=== PATIENT | female | born 1965 | race Caucasian/White ===

== ENCOUNTER 2024-04-20 10:02 | Inpatient (IN) | payer OTHER, SELFPAY ==
[2024-04-20] VITALS (11 sets, daily range): BP systolic 109–160; BP diastolic 73–104; BMI 26.0; BMI 25.6
[2024-04-20 07:03] LABS: % Eosinophils 1.7 % (0-6); % Immature Granulocytes 0.3 % (0-0.5); % Monocytes 9.2 % (1.7-9.3); % Neutrophils 53.8 % (42.2-75.2); Absolute Basophils 0.1 10^3/uL (0-0.2); Absolute Eosinophils 0.1 10^3/uL (0-0.7); Absolute Lymphocytes 2.4 10^3/uL (1.2-3.4); Absolute Monocytes 0.7 10^3/uL (0.1-0.6); Absolute Neutrophils 3.8 10^3/uL (1.4-6.5); Hemoglobin 13.8 g/dL (12.0-16.0); Mean Corp Hgb Conc. 32.9 g/dL (33.0-37.0); Mean Corpuscular Hgb 29.9 pg (27.0-31.0); Mean Corpuscular Volume 90.9 fL (81.0-99.0); Mean Platelet Volume 11.9 fL (7.4-10.4); Nucleated Red Blood Cells % 0 %; Platelet Count 224 10^3/uL (130-400); Red Blood Cell Count 4.62 10^6/uL (4.20-5.40); Red Cell Dist. Width 13.5 % (11.5-14.5); White Blood Cell Count 7.1 10^3/uL (4.8-10.8)
[2024-04-20 07:06] LABS: ALT (SGPT) 34 U/L (0-35); AST (SGOT) 24 U/L (14-36); Albumin 3.7 g/dl (3.5-5.0); Alkaline Phosphatase 73 U/L (38-126); Blood Urea Nitrogen 26 mg/dl (7-17); Calcium 9.4 mg/dl (8.4-10.2); Carbon Dioxide 20 mmol/L (22-30); Chloride 110 mmol/L (98-107); Estimated Creatinine Clearance 58 ml/min; Glucose 115 mg/dl (70-99); Potassium 4.5 mmol/L (3.5-5.1); Sodium 137 mmol/L (135-145); Total Bilirubin 1.4 mg/dl (0.2-1.3); Total Protein 5.8 g/dl (6.3-8.2); eGFR > 60.00
--- NOTE | 2024-04-20 07:15 | ED.GENMED ---
History of Present Illness
General
Chief Complaint: Breathing Problem
Source: patient
Exam Limitations: none
Time Seen by Provider: 04/20/24 07:02
History of Present Illness
History of Present Illness:
See MDM
Past History
Past History
ED Past Medical History: HTN and Other (Restless leg syndrome)
ED Past Surgical History: None
Social History
Tobacco: Smoker
Alcohol: Daily
Living: with family
Employment: Employed
Family History
Family History: Other (Noncontributory)
Phy Exam
Physical Exam
Physical Exam:
See MDM
Scores
Heart Failure Risk
Heart Failure Risk Score: Yes
History of Stroke or TIA: No
History of intubation for respiratory distress: No
Heart rate on ED arrival >/= 110: No
SaO2 <90% on arrival on room air: No
HR >/=110 during 3min walk test (or too ill to perform test): Yes
ECG has acute ischemic changes: No
Urea >/=12mmol/L (BUN 33.6mg/dL): No
Serum CO2>/=35mmol/L: No
Troponin I or T elevated to ID Level (0.4mg/dL): No
NT-proBNP >/=5,000ng/L (5,000pg/ml): Yes
HF Risk Score: 3
Admission Status: HIGH RISK 15.9% Consider SNF treatment or admission to hospital
Course
Orders/Labs/Results
Orders:
Orders
04/20/24
Electrocardiogram (*1) Stat
Reason for Study: Chest Pain
Comment: DONE
04/20/24 06:41
Complete Blood Count/With Diff Urgent
Comprehensive Metabolic Panel Urgent
NT-proBNP Urgent
Troponin I Urgent
04/20/24 06:43
Electrocardiogram (*1) Urgent
Reason for Study: Chest Pain
EKG- Treatment ONCE
04/20/24 06:54
Chest [CR Chest - 2 Views ] Urgent
Comment:
Reason For Exam: shortness of breath
04/20/24 07:21
COVID-19 Antigen Urgent
Source: Nasal Swab
Influenza A+B Rapid Molecular Urgent
RHEA Source: Nasal Swab
Specimen Description:
04/20/24 08:33
Furosemide [Lasix] 40 mg IV NOW STA
Abnormal Lab Results
04/20/24
06:41
MCHC 32.9 L g/dL
(33.0-37.0)
MPV 11.9 H fL
(7.4-10.4)
Absolute Monos (auto) 0.7 H 10^3/uL
(0.1-0.6)
Chloride 110 H mmol/L
(98-107)
Carbon Dioxide 20 L mmol/L
(22-30)
BUN 26 H mg/dl
(7-17)
Glucose 115 H mg/dl
(70-99)
Total Bilirubin 1.4 H mg/dl
(0.2-1.3)
Total Protein 5.8 L g/dl
(6.3-8.2)
04/20/24 06:41
04/20/24 06:41
Vital Signs
Initial and Last Documented VS:
Initial Vital Signs
Temp Pulse Resp BP Pulse Ox
99.1 F 100 28 160/104 96
04/20/24 06:04 04/20/24 06:04 04/20/24 06:04 04/20/24 06:04 04/20/24 06:04
Last Documented Vital Signs
Temp Pulse Resp BP Pulse Ox
99.1 F 86 18 148/98 98
04/20/24 06:04 04/20/24 08:00 04/20/24 08:00 04/20/24 08:00 04/20/24 08:00
MDM/Problems Addressed
Differential Diagnosis Includes:
HPI and MDM Narrative:
58-year-old female presenting with several days of worsening shortness of breath. Patient states she is short of breath with minimal exertion. She denies any active chest pain or leg swelling. Patient does acknowledge that she has been without
her medications for several months. When questioned why, she states she no longer has insurance.
Patient does give a concerning story with exertional dyspnea. EKG was done showing no evidence of acute STEMI. Regardless, will obtain chest x-ray and basic blood work including BNP and troponin.
Physical exam
General: Weak and fatigued
HEENT: protecting airway
Neck: appears supple
CV: No evidence of cyanosis. Regular rate and rhythm
Resp: No accessory muscle use. Lungs clear
Abd: Non-distended
Extremities: No deformities. No leg edema
Neuro: alert
Psych: Normal affect
Skin: Intact
Problems Addressed including Acute and Chronic Conditions affecting care:
1. Shortness of breath with exertion
Acuity: acute
Prognosis: stable
Details: Given her history, will obtain chest x-ray, troponin and BNP
Updates
Chest x-ray shows cardiomegaly. BNP greater than 9000. Will give dose of IV Lasix and admit
Differential Diagnosis (but not limited to): Pneumonia, viral syndrome, acute coronary syndrome
Testing considered: D-dimer
Drug therapy (if applicable): OTC meds, please see d/c instruction regarding Rx drugs
Amount and/or Complexity of Data Reviewed
Clinical info obtained from: Patient
External data reviewed: N/A
Labs I independently reviewed (but not limited to): Elevated BNP
Radiology: X-ray independently reviewed: Chest x-ray shows cardiomegaly
Pulse Ox: not hypoxic
EKG independently reviewed: Sinus rhythm, normal axis, no STEMI
Customer Support Agent: sinus rhythm
Critical Care: N/A
Risk of Complication:
Social Determinants of health: Good social support
Discussed with other providers: Hospitalist
Escalation of Care includes Admit/Obs: Given the cardiomegaly with exertional dyspnea, will start Lasix and admit
Occasional wrong word or 'sound a like' substitutions may have occurred due to the inherent limitations of voice recognition software. Read the chart carefully and recognize, using context, where substitutions have occurred.
*Critical Care Note
Total Time (30-74mins, 75-104mins- exclusive of procedures): Not Applicable
ED Attending Note
-
Portions of this chart may have been created with voice recognition software.� Occasional wrong word or��sound alike� substitutions may have occurred due to the inherent limitations of voice recognition software.
Discharge Plan
Departure
Patient Disposition: Admit
Date of Disposition: 04/20/24
Time of Disposition: 08:37
Admit to: Med/Surg
Presentation/result/management discussed w/ accepting MD/DO: Hospitalist
Discharge Problem:
Cardiomegaly, WEBBER (dyspnea on exertion)
Prescriptions:
No Action
ferrous sulfate [FeroSul] 325 MG tablet
325 mg PO DAILY
carvedilol 3.125 MG tablet
3.125 mg PO BID Qty: 60 0RF
lisinopril 5 MG tablet
5 mg PO DAILY Qty: 30 0RF
furosemide 40 MG tablet
40 mg PO DAILY Qty: 30 0RF
aspirin 81 MG tablet,delayed release (DR/EC)
81 mg PO DAILY
Referrals:
NONE,* [Family Provider] -
Interventions
Interventions:
*Risk Screen - Suicide Last Done: 04/20/24 06:04
*General Assessment Last Done: 04/20/24 06:44
*Neglect/Abuse Screening Last Done: 04/20/24 06:04
ED- Cardiac Assessment Last Done: 04/20/24 06:44
ED- Pulmonary Assessment Last Done: 04/20/24 06:44
Discharge Date and Time
Print Language: MALTESE
[2024-04-20 07:30] LABS: NT-proBNP 9510 pg/ml; Troponin I 0.028 ng/ml
[2024-04-20 08:04] LABS: COVID-19 Antigen Negative (Negative)
[2024-04-20] MEDS: LASIX 40 MG IV ×2 (08:51→16:32)
--- NOTE | 2024-04-20 09:07 | HPS.HSE ---
Family Physician
-
Family Physician: * NONE
Chief Complaint
-
WEBBER
History of Present Illness
58 y/o F, hx of tobacco abuse, daily ETOH intake, prior hx of cardiomyopathy on GMDT including diuretics presents to ER for 1.5 week history of WEBBER. She reports onset was about 10 days and have gradually progressed. She reports SOB with minimal
activity. Also SOB when laying flat, but improved with sitting up. Denies LE edema but does note abdominal distention. Denies CP. No fever/chills. No Nausea/vomiting. Reports running out of insurance since Summer and recently finished her BP meds
and last week ran out of Lasix. Does not follow recommended diets nor does she check daily weights. Has not seen PCP In nearly 1 year.
in ER, found to have evidence of acute CHF and admitted for treatment. Cards consulted.
Medical History
Past Medical History
Past Medical History: Reports Other ( tobacco abuse, daily ETOH intake, prior hx of cardiomyopathy on GMDT, essential HTN)
Past Surgical History: Reports None
Social History
Tobacco: Smoker (1 pack over 3 days)
Alcohol: Daily
Personal:
Living: With Family
Employment: Not Employed
Family History
Family History: Not pertinent
Allergies / Home Medications
Allergies reflects when Allergies were last updated in [employer].
Home Medications with original date entered in [employer]
Allergy/Medication List:
N/A - not active list (not on meds currently due to insurance issues) - ED pharmacy will document
Review of Systems
-
A 12 point ROS was completed and negative except as noted: Yes
Physical Exam
Vital Signs
Vital Signs
Temp Pulse Resp BP Pulse Ox
99.1 F 86 18 148/98 98
04/20/24 06:04 04/20/24 08:00 04/20/24 08:00 04/20/24 08:00 04/20/24 08:00
Physical Exam
General: Respiratory Distress (mild)
HEENT: NormoCephalic and Anicteric
Respiratory: Crackles
Cardiac: S1/S2 and Regular Rhythm
GI: Distended
Neuro: AO x 3
Hematologic/Lymphatic: No Lymphadenopathy
Psych: Calm
Laboratory Results
-
04/20/24 06:41
04/20/24 06:41
Laboratory Results
Total Bilirubin 1.4 mg/dl (0.2-1.3) H 04/20/24 06:41
AST 24 U/L (14-36) 04/20/24 06:41
ALT 34 U/L (0-35) 04/20/24 06:41
Alkaline Phosphatase 73 U/L (38-126) 04/20/24 06:41
Troponin I 0.028 ng/ml 04/20/24 06:41
Data Reviewed
-
Lab Data: Labs Reviewed by me
Impression/Plan
-
Assessment:
Acute CHF - unknown type
- CXR with cardiomegaly
- evidence of volume overload (Abd distention, crackles), BNP>9000
- continue IV Lasix, 40mg BID - requires intensive monitoring of I/Os, weights, lytes
- prior GDMT included Coreg and Lisinopril - but has not filled in months due to insurance lapse
- update Echo
- CHF Education
- Cardiology consult
Essential HTN
- resume Coreg and Lisinopril - CM to assist with pricing/discount options
active tobacco abuse
- reports 1 pack every 3 days
- nicotine patch
- encouraged cessation
daily ETOH intake
- reports 2-3 drinks daily
- MSAS protocol
- encouraged cessation
DVT ppx: Lovenox
Code: Full
--- NOTE | 2024-04-20 11:24 | CON.CAR ---
Addendum entered and electronically signed by Carlos Alberto Bey DO 04/20/24 20:45:
I saw and examined the patient.
The Computer Programmer's note was reviewed and I agree with the note.
Comment:
Plan:
Cont IV lasix diuresis (she had been on lasix 40 mg daily in the past)
Check echo to reeval EF given hx of recovered CM
Case management to review and help with insurance issues
Discussed tobacco and alcohol cessation.
Compliance has been discussed
Original Note:
Consultation
Consultation Request
Date/Time Consultation Performed: 04/20/24
Requesting Provider: Dr. Landry
Performing Provider: Nida Palacio PA-C for Dr. CATHLEEN Ennis
Reason for Consultation: CHF
Medical History
-
Chief Complaint: SOB
History of Present Illness:
Patient is a 58-year-old female with past medical history of suspected ETOH nonischemic cardiomyopathy with EF as low as 10 to 15% in 2014, normalized by echo 08/2019 who presents to [facility] due to shortness of breath worsening since last
week as well as significant abdominal bloating. On further questioning she reports she failed to sign up for health insurance on time, and therefore lost her insurance. She reports she ran out of her medicines including Lasix. Only medicine she
is still taking is lisinopril. proBNP on arrival 9510. Denies chest pain, lower extremity edema, palpitations. She continues to smoke cigarettes. She drinks 2-3 alcoholic beverages daily. Cardiology consulted for evaluation.
PMH:
History of suspected ETOH NICM
Chronic HFimpEF
HTN
Ongoing tobacco use
Daily ETOH use
History of noncompliance
Past Medical History
Past Medical History: Other (in HPI)
Social History
Tobacco: Smoker
Alcohol: Daily
Personal:
Living: With Family
Employment: Not Employed
Family History
Family History: CAD
Allergies / Home Medications
Allergy/AdvReac Type Severity Reaction Status Date / Time
latex Allergy Intermediate Itching Verified 04/20/24 06:09
Sulfa (Sulfonamide Allergy Intermediate Itching Verified 04/20/24 06:09
Antibiotics)
�Medication �Instructions �Recorded �Confirmed �Type
Restless Leg Pm Tablets 3 - 4 tab PO HSPRN PRN rts 04/20/24 04/20/24 History
lisinopril 20 mg tablet 20 mg PO DAILY 04/20/24 04/20/24 History
Review of Systems
-
History Source: Patient and Family
All other systems: Negative unless noted
Physical Exam
Vital Signs
Temp Pulse Resp BP Pulse Ox
97.3 F 81 18 127/90 94
04/20/24 11:23 04/20/24 11:23 04/20/24 11:23 04/20/24 11:23 04/20/24 11:23
Lab Results
04/20/24 06:41
04/20/24 06:41
Troponin I 0.028 ng/ml 04/20/24 06:41
Cno-I-Dlpubijrgpz Pept 9510 pg/ml 04/20/24 06:41
Physical Exam
General: No Apparent Distress and Comfortable
HEENT: Normocephalic, Anicteric and Moist Mucous Membranes
Respiratory: Clear and Non Labored Respirations
Cardiac: S1/S2 and Regular Rhythm
GI: Soft, Non Tender, Normal Bowel Sounds and Distended (mild)
Musculoskeletal: No Clubbing, No Cyanosis and No Edema
Skin: Warm and Dry
Neuro: AO x 3
Impression / Plan
-
Primary Experimental Outboard Motors Mechanic: Dr. Aguilar, last seen in 2021
Assessment:
Presentation with SOB, abd bloating
Acute on chronic HFpEF
History of suspected ETOH NICM, recovered
HTN
Ongoing tobacco use
Daily ETOH use
History of noncompliance
Echo 11/29/2014: EF 10 to 15%, global hypokinesis, biatrial dilatation, moderate MR, mild AR, moderate TR with PAP 35 to 40 mmHg
ECHO 10/05/15: EF 40%, mild global hypokinesis, mild cLVH, mild AR
ECHO 09/24/2019: EF 50 to 55%, MAC, mild MR, mild TR, PAP 50 mmHg
ECHO 11/22/21: EF 57%, mild concentric LVH, MAC, mild MR, normal right heart
Plan:
-Patient presents with acute CHF after running out of her medications including lasix after losing her health insurance.
-proBNP 9510
-continue IV lasix. was on 40mg daily in past. Cr stable
-last echo from 2021 with results as above. she has history of NICM so will repeat echo for reassessment
-resume GDMT as able. by last office note 02/2021, patient was on OP medication regimen of coreg 12.5mg BID, lisinopril 20mg daily, spironolactone 25mg daily.
-CHF education
-tobacco and ETOH cessation
-CM consult
-d/w nursing. d/w patient and at bedside
Data Reviewed
-
EKG: Tracing Personally Visualized and interpreted
Radiology: Report Reviewed by me
Medical Tests (Nuc Med, Echo etc): Report Reviewed by me
Labs: Labs Reviewed by me
Old Records: Reviewed
--- NOTE | 2024-04-20 11:30 | PTCARENOTE ---
no delay received. aaox3. nsr. vss. cards pa at bedside. oriented to room. call oliva in reach. will monitor.
[2024-04-20] MEDS: ZESTRIL 5 MG PO (11:40)
[2024-04-20] MEDS: COREG 6.25 MG PO ×2 (11:40→20:37)
[2024-04-20] MEDS: THIAMINE INJECTION 200 MG IV ×2 (11:41→20:37)
[2024-04-20] MEDS: NICODERM TRANSDERMAL 14 MG TRANSDERM (11:41)
[2024-04-20] MEDS: LOVENOX 40 MG SC (17:42)
--- NOTE | 2024-04-20 23:43 | PTCARENOTE ---
Pt with 39 beat run VTACH. Pt sleeping, upon entering pt room, woke pt up, HR back into the 60's in NSR on the monitor with occ. PVC's. Vital signs obtained, stable at this time. Pt denies any complaints. House ROAD FREIGHT FIRER notified. Labs ordered for am. Will
continue to monitor.
[2024-04-21] VITALS (7 sets, daily range): BP systolic 101–126; BP diastolic 62–93; BMI 24.3
[2024-04-21 07:23] LABS: Hematocrit 45.6 % (37.0-47.0); Hemoglobin 15.3 g/dL (12.0-16.0); Mean Corp Hgb Conc. 33.6 g/dL (33.0-37.0); Mean Corpuscular Hgb 29.5 pg (27.0-31.0); Mean Corpuscular Volume 87.9 fL (81.0-99.0); Mean Platelet Volume 12.2 fL (7.4-10.4); Platelet Count 254 10^3/uL (130-400); Red Blood Cell Count 5.19 10^6/uL (4.20-5.40); Red Cell Dist. Width 13.3 % (11.5-14.5); White Blood Cell Count 6.7 10^3/uL (4.8-10.8)
--- NOTE | 2024-04-21 09:41 | W.PN.CARDCBS ---
Addendum entered and electronically signed by Carlos Alberto Bey DO 04/21/24 10:14:
I saw and examined the patient.
The Transformation Architect's note was reviewed and I agree with the note.
Comment:
Plan:
Cont IV diuresis
Reviewed echo findings with pt. Discussed right and left heart cath and she is agreable.
Increase Coreg and cont ACEI, eventual consider aldactone.
Monitor cr, daily wts and Is and Os.
Cont monitor with NSVT
Check Mg and potassium
Discussed compliance and tobacco and alcohol cessation.
Original Note:
Today's Communication / Plan
-
continue diuresis
plan for R and LHC in AM
increase coreg
await K/mag and replete as needed
Impression / Plan
-
Primary Equalizer Operator: Dr. Aguilar, last seen in 2021
Assessment:
Presentation with SOB, abd bloating
Acute on chronic HFpEF
History of suspected ETOH NICM, recovered
HTN
Ongoing tobacco use
Daily ETOH use
History of noncompliance
Echo 11/29/2014: EF 10 to 15%, global hypokinesis, biatrial dilatation, moderate MR, mild AR, moderate TR with PAP 35 to 40 mmHg
ECHO 10/05/15: EF 40%, mild global hypokinesis, mild cLVH, mild AR
ECHO 09/24/2019: EF 50 to 55%, MAC, mild MR, mild TR, PAP 50 mmHg
ECHO 11/22/21: EF 57%, mild concentric LVH, MAC, mild MR, normal right heart
ECHO 04/20/24: EF 20 to 25%, mild concentric LVH, global hypokinesis, stage II diastolic dysfunction, dilated RA, mild to moderate MR, mild AR, moderate TR, mild NH
Plan:
-Patient presents with acute CHF after running out of her medications including lasix after losing her health insurance.
-diuresing well. weight down if accurate. labs pending this AM. was on 40mg po daily in past.
-by echo she again has reduced EF 20-25%.
-Also on review of telemetry, has one episode of NSVT, PVCs, and what appears to be intermittent bundle overnight. patient asymptomatic. check K/mag and replete as needed. will increase coreg dose
-will plan for R and LHC in AM. NPO after midnight. procedure discussed with patient and at bedside today
-resume GDMT as able. by last office note 02/2021, patient was on OP medication regimen of coreg 12.5mg BID, lisinopril 20mg daily, spironolactone 25mg daily.
-CHF education
-tobacco and ETOH cessation
-CM consult
-d/w nursing.
Progress Note - Equalizer Operator
Subjective
Date of Service: April 21, 2024
reports breathing improving. no CP, palpitations
Objective
Labs:
04/21/24 06:40
Labs
Hgb 15.3 g/dL (12.0-16.0) 04/21/24 06:40
Hct 45.6 % (37.0-47.0) 04/21/24 06:40
Plt Count 254 10^3/uL (130-400) 04/21/24 06:40
Sodium 137 mmol/L (135-145) 04/20/24 06:41
Potassium 4.5 mmol/L (3.5-5.1) 04/20/24 06:41
BUN 26 mg/dl (7-17) H 04/20/24 06:41
Creatinine 1.0 mg/dL (0.6-1.0) 04/20/24 06:41
Glucose 115 mg/dl (70-99) H 04/20/24 06:41
Troponins
04/20/24
06:41
Troponin I 0.028
Vital Signs and I&O:
Vital Signs
Temp Pulse Resp BP Pulse Ox
98.2 F 64 16 107/77 98
04/21/24 07:15 04/21/24 07:15 04/21/24 07:15 04/21/24 07:15 04/21/24 07:15
Vital Signs
Temp Pulse Resp BP Pulse Ox
98.2 F 64 16 107/77 98
04/21/24 07:15 04/21/24 07:15 04/21/24 07:15 04/21/24 07:15 04/21/24 07:15
Intake & Output
04/19/24 04/20/24 04/21/24 04/22/24
07:59 07:59 07:59 07:59
Intake Total 720 / 720
Balance 720 / 720
Physical Exam
Physical Exam
GEN: No distress, awake, alert, oriented x3
HEENT: supple, anicteric, mmm, eomi
LUNGS: Few crackles B/L
CV: Reg, S1/S2, no murmur
ABD: soft, BS+, NT/ND
EXT: No cyanosis, clubbing, edema
NEURO: Gross non-focal
SKIN: Warm, pink, dry. No rash
[2024-04-21] MEDS: FOLVITE 1 MG PO (09:45)
[2024-04-21] MEDS: COREG PO ×2 (09:45→09:53)
[2024-04-21] MEDS: ZESTRIL 5 MG PO (09:45)
[2024-04-21] MEDS: LASIX 40 MG IV ×2 (09:45→17:15)
[2024-04-21] MEDS: NICODERM TRANSDERMAL 14 MG TRANSDERM (09:46)
[2024-04-21] MEDS: THIAMINE INJECTION 200 MG IV ×2 (09:46→20:17)
[2024-04-21] MEDS: COREG 12.5 MG PO ×2 (09:54→20:16)
[2024-04-21 10:09] LABS: ALT (SGPT) 29 U/L (0-35); AST (SGOT) 21 U/L (14-36); Albumin 4.1 g/dl (3.5-5.0); Alkaline Phosphatase 78 U/L (38-126); Blood Urea Nitrogen 29 mg/dl (7-17); Calcium 9.8 mg/dl (8.4-10.2); Carbon Dioxide 19 mmol/L (22-30); Chloride 102 mmol/L (98-107); Estimated Creatinine Clearance 58 ml/min; Glucose 121 mg/dl (70-99); Magnesium 1.8 mg/dl (1.6-2.3); Phosphorus 4.6 mg/dl (2.5-4.5); Potassium 4.2 mmol/L (3.5-5.1); Sodium 136 mmol/L (135-145); Total Bilirubin 1.4 mg/dl (0.2-1.3); Total Protein 6.3 g/dl (6.3-8.2); eGFR > 60.00
--- NOTE | 2024-04-21 10:34 | CM ---
CM reviewed medical records. Plan for R and L heart cath tomorrow 04/22.
--- NOTE | 2024-04-21 12:22 | W.PN.HOSP.TC ---
Today's Communication/Plan
-
NPO p MN for R+L heart cath tomorrow - discussed with Cardiology
Assessment / Plan
Assessment / Plan
Assessment:
Acute HFrEF
- CXR with cardiomegaly
- evidence of volume overload (Abd distention, crackles), BNP>9000
- continue IV Lasix, 40mg BID - requires intensive monitoring of I/Os, weights, lytes
- prior GDMT included Coreg and Lisinopril - but has not filled in months due to insurance lapse
- echo: ECHO 04/20/24: EF 20 to 25%, mild concentric LVH, global hypokinesis, stage II diastolic dysfunction, dilated RA, mild to moderate MR, mild AR, moderate TR, mild OH
- CHF Education
- Cardiology following
- for Right and Left heart cath tomorrow
Essential HTN
- continue Coreg and Lisinopril - CM to assist with pricing/discount options
NSVT
- monitor tele; monitor lytes
active tobacco abuse
- reports 1 pack every 3 days
- nicotine patch
- encouraged cessation
daily ETOH intake
- reports 2-3 drinks daily
- MSAS protocol
- encouraged cessation
DVT ppx: Lovenox
Code: Full
Anticipated Discharge: > 48 hours
Subjective/Interval History
-
Date of Service: April 21, 2024
breathing improved
no cp or palpitations
Objective Data
-
Labs:
Laboratory Results
04/21/24
06:40
WBC 6.7
Hgb 15.3
Hct 45.6
Plt Count 254
Sodium 136
Potassium 4.2
Chloride 102
Carbon Dioxide 19 L
BUN 29 H
Creatinine 1.0
Glucose 121 H
Calcium 9.8
Total Bilirubin 1.4 H
AST 21
ALT 29
Alkaline Phosphatase 78
Vital Signs:
Vital Signs
Temp Pulse Resp BP Pulse Ox
97.7 F 68 17 109/70 96
04/21/24 11:00 04/21/24 11:00 04/21/24 11:00 04/21/24 11:00 04/21/24 11:00
I&O
04/20/24 04/21/24 04/22/24
06:59 06:59 06:59
Intake Total 720 / 720 360 / 360
Balance 720 / 720 360 / 360
Physical Exam
-
General: No Apparent Distress
HEENT: Normocephalic and Atraumatic
Respiratory: Negative Wheezes
Cardiac: Regular Rhythm and S1/S2
GI: Soft and Nontender
Genito-urinary: No Costovertebral Tender
Neuro: AO x 3
Hematologic / Lymphatic: No Lymphadenopathy
Psych: Calm
Data Reviewed
-
Total Time Spent with Patient (in minutes): 52
Labs: Labs Reviewed by me
[2024-04-21] MEDS: MAGNESIUM OXIDE 500 MG PO (13:45)
--- NOTE | 2024-04-21 14:45 | CM ---
CM reviewed medical records. CM met with patient in room. Patient confirmed demographics. Patient is currently living in the garage of her property with her boyfriend. Patient's home is being remodeled, but due to boyfriend's stroke the patient was
unable to complete the repairs on the home. THe home has electricity and heat currently on in the home. Patient stated that the garage does have a wood stove.
Patient stated her only source of income is her boyfriend's social security check. Patient stated that she cannot work due to boyfriend's illness and her having to care for him.
Patient's Medicaid had lapsed. CM advised patient to follow up with [facility]. Patient stated that Peggy has been in contact with patient.
CM will provide written resources for patient including goodrX, needy meds, and [facility].
[2024-04-21] MEDS: LOVENOX 40 MG SC (17:15)
[2024-04-22] VITALS (16 sets, daily range): BP systolic 97–132; BP diastolic 62–98; BMI 24.1
[2024-04-22 07:25] LABS: Hematocrit 50.6 % (37.0-47.0); Hemoglobin 16.7 g/dL (12.0-16.0); Mean Corpuscular Hgb 29.5 pg (27.0-31.0); Mean Corpuscular Volume 89.4 fL (81.0-99.0); Platelet Count 286 10^3/uL (130-400); Red Blood Cell Count 5.66 10^6/uL (4.20-5.40); Red Cell Dist. Width 13.4 % (11.5-14.5); White Blood Cell Count 7.8 10^3/uL (4.8-10.8)
[2024-04-22] MEDS: LOW STRENGTH ASPIRIN 324 MG PO (08:28)
[2024-04-22 08:31] LABS: ALT (SGPT) 28 U/L (0-35); AST (SGOT) 19 U/L (14-36); Albumin 4.2 g/dl (3.5-5.0); Alkaline Phosphatase 80 U/L (38-126); Blood Urea Nitrogen 38 mg/dl (7-17); Calcium 10.3 mg/dl (8.4-10.2); Carbon Dioxide 22 mmol/L (22-30); Chloride 101 mmol/L (98-107); Estimated Creatinine Clearance 48 ml/min; Glucose 117 mg/dl (70-99); Potassium 4.7 mmol/L (3.5-5.1); Sodium 134 mmol/L (135-145); Total Protein 6.8 g/dl (6.3-8.2)
[2024-04-22 10:18] LABS: ACT-LR - POC 202 Seconds (116-155)
[2024-04-22 10:30] LABS: ACT-LR - POC 208 Seconds (116-155)
--- NOTE | 2024-04-22 10:42 | ITS.CL.CATH ---
Bridge Crane Operator - Catheterization
Cardiac Catheterization
Procedure Report:
RIGHT AND LEFT HEART STUDY
Date of Procedure: April 22, 2024
Referring: Dr. Carlos Alberto Bey
PROCEDURES:
1. Right heart catheterization
2. Left heart catheterization with coronary and single-plane left ventriculography
INDICATION: This is a 58-year-old female with a prior history of heavy alcohol abuse and nonischemic cardiomyopathy by coronary angiography 08/2014.
ACCESS: Right radial artery, 6 [place] sheath in right common femoral vein, 6 [place] sheath
HEMODYNAMICS : mmHg
RA (m) : 12
RV (s/d) : 41/9
PA (s/d, m) : 40/24, 30
PCWP (m) : 20
AO (s/d, m) : 114/81, 94
LV (s/d) : 109/10
LVEDP : 18
Estimated Smith Cardiac Output: 2.3 L / min and Cardiac Index: 1.3 L/ min / m-2
Systemic vascular resistance: 35.7 Wood units or 2,852 [id number](-5)
Pulmonary vascular resistance: 4.3 Wood units or 348 [id number]-[id number](-5)
CORONARY FINDINGS :
Dominance: Right
LEFT MAIN: Normal
LEFT ANTERIOR DESCENDING: The LAD is moderately to heavily calcified in its proximal midportion. The LAD runs in the anterior interventricular groove and has only minor irregularities over its course but no focal obstructive stenosis. The mid LAD
beyond the second diagonal branch has a 40% stenosis
CIRCUMFLEX: The circumflex is a medium caliber nondominant vessel with moderate calcification in the mid vessel. The circumflex supplies a single large obtuse marginal branch. Minor irregularities are present.
RIGHT CORONARY ARTERY: The right coronary artery is a moderate caliber dominant vessel that has diffuse luminal irregularities over its course but no focal obstructive stenosis. The PDA is widely patent. The posterolateral branch is widely patent
VENTRICULOGRAPHY: Left ventriculography is performed in an OCAMPO projection. The digital single-plane left ventricular ejection fraction is visually estimated at 10-15%. The ventricle is dilated and globally hypokinetic
RADIATION SUMMARY: Fluoro Time (min): 6.5, Dose (mGy): 230, DAP (Gy.cm2) : 20.7
CONCLUSIONS
1. Severe LV dysfunction with a visually estimated ejection fraction of 10-15%
2. Mildly elevated right and left ventricular filling pressures with severely reduced cardiac output and cardiac index
3. Moderate noncritical coronary disease
RECOMMENDATIONS
1. Continue medical management for dilated cardiomyopathy. I would continue pushing guideline directed medical therapy for LV dysfunction. Blood pressures are good but creatinine slowly rising. We may have to consider inotropic therapy with
milrinone if the creatinine continues to rise while titrating medical therapy. For now, she is maintaining blood pressures and diuresing well.
Copy to: Dr. Damon Aguilar
--- NOTE | 2024-04-22 13:30 | W.PN.HOSP.TC ---
Today's Communication/Plan
-
IVU post-cath
continue diuretics
follow Cards recs
Assessment / Plan
Assessment / Plan
Assessment:
Acute HFrEF
- CXR with cardiomegaly
- evidence of volume overload (Abd distention, crackles), BNP>9000
- continue IV Lasix, 40mg BID - requires intensive monitoring of I/Os, weights, lytes
- prior GDMT included Coreg and Lisinopril - but has not filled in months due to insurance lapse
- echo: ECHO 04/20/24: EF 20 to 25%, mild concentric LVH, global hypokinesis, stage II diastolic dysfunction, dilated RA, mild to moderate MR, mild AR, moderate TR, mild UT
- CHF Education
- Cardiology following
- s/p R and L HC with clean coronaries and CI 1.2 per cardiac GARAGE DOOR TECHNICIAN - await formal report
Essential HTN
- continue Coreg and Lisinopril - CM to assist with pricing/discount options
NSVT
- monitor tele; monitor lytes
active tobacco abuse
- reports 1 pack every 3 days
- nicotine patch
- encouraged cessation
daily ETOH intake
- reports 2-3 drinks daily
- MSAS protocol
- encouraged cessation
DVT ppx: Lovenox
Code: Full
Anticipated Discharge: 24 - 48 hours
Subjective/Interval History
-
Date of Service: April 22, 2024
s/p cath
resting comfortably
Objective Data
-
Labs:
Laboratory Results
04/22/24
06:45
WBC 7.8
Hgb 16.7 H
Hct 50.6 H
Plt Count 286
Sodium 134 L
Potassium 4.7
Chloride 101
Carbon Dioxide 22
BUN 38 H
Creatinine 1.2 H
Glucose 117 H
Calcium 10.3 H
Total Bilirubin 1.0
AST 19
ALT 28
Alkaline Phosphatase 80
Vital Signs:
Vital Signs
Temp Pulse Resp BP Pulse Ox
97.3 F 63 10 132/96 94
04/22/24 07:44 04/22/24 12:00 04/22/24 12:38 04/22/24 11:53 04/22/24 12:00
I&O
04/21/24 04/22/24 04/23/24
06:59 06:59 06:59
Intake Total 720 / 720 600 / 600
Balance 720 / 720 600 / 600
Physical Exam
-
General: No Apparent Distress
HEENT: Normocephalic and Atraumatic
Respiratory: Wheezes
Cardiac: Regular Rhythm and S1/S2
GI: Soft and Nontender
Genito-urinary: No Costovertebral Tender
Musculoskeletal: No Edema
Neuro: AO x 3
Hematologic / Lymphatic: No Lymphadenopathy
Psych: Calm
Data Reviewed
-
Total Time Spent with Patient (in minutes): 51
Labs: Labs Reviewed by me
[2024-04-22] MEDS: THIAMINE INJECTION IV (14:06)
[2024-04-22] MEDS: COREG PO (14:06)
[2024-04-22] MEDS: FOLVITE PO (14:06)
[2024-04-22] MEDS: NICODERM TRANSDERMAL 14 MG TRANSDERM (14:32)
[2024-04-22] MEDS: ZESTRIL 5 MG PO (14:33)
[2024-04-22] MEDS: LASIX IV (14:36)
--- NOTE | 2024-04-22 16:33 | PTCARENOTE ---
Assumed care of pt upon tsf from CCL post CC. Pt received awake and alert, Ox3.. Right radial and femoral dsg's remain CDI. Movement restrictions reviewed with pt. Pt oriented to room and surroundings, denies any pain or discomfort at this time.
[2024-04-22] MEDS: LOVENOX 40 MG SC (17:21)
[2024-04-22] MEDS: THIAMINE INJECTION 200 MG IV (20:27)
[2024-04-22] MEDS: COREG 12.5 MG PO (20:30)
--- NOTE | 2024-04-22 21:20 | PTCARENOTE ---
Patient received at change of shift resting in the bed. Right radial puncture with gauze and tegaderm C/D/I, bilateral radial pulses palpable. Right groin puncture site C/D/I, bilateral pedal pulses palpable. Patient denies chest pain and offers no
complaints at this time. MSAS zero presently. Normal sinus rhythm on nuclear monitoring technician with occasional PVCs. Oxygen saturation 95-97% on room air. The patient is drowsy but awakens to voice and tactile stimulation, AOx3. Plan of care discussed with
patient. Call oliva within reach. Care ongoing.
[2024-04-23] VITALS (7 sets, daily range): BP systolic 85–107; BP diastolic 52–80; BMI 24.3
[2024-04-23 03:14] LABS: Hematocrit 46.7 % (37.0-47.0); Hemoglobin 15.8 g/dL (12.0-16.0); Mean Corp Hgb Conc. 33.8 g/dL (33.0-37.0); Mean Corpuscular Hgb 29.5 pg (27.0-31.0); Mean Corpuscular Volume 87.3 fL (81.0-99.0); Mean Platelet Volume 11.2 fL (7.4-10.4); Platelet Count 258 10^3/uL (130-400); Red Blood Cell Count 5.35 10^6/uL (4.20-5.40); Red Cell Dist. Width 13.4 % (11.5-14.5); White Blood Cell Count 7.5 10^3/uL (4.8-10.8)
[2024-04-23 03:42] LABS: ALT (SGPT) 23 U/L (0-35); AST (SGOT) 18 U/L (14-36); Albumin 3.8 g/dl (3.5-5.0); Alkaline Phosphatase 65 U/L (38-126); Blood Urea Nitrogen 39 mg/dl (7-17); Carbon Dioxide 23 mmol/L (22-30); Chloride 104 mmol/L (98-107); Estimated Creatinine Clearance 58 ml/min; Glucose 114 mg/dl (70-99); Potassium 4.4 mmol/L (3.5-5.1); Sodium 135 mmol/L (135-145); Total Bilirubin 0.9 mg/dl (0.2-1.3); Total Protein 6.2 g/dl (6.3-8.2); eGFR > 60.00
[2024-04-23] MEDS: NICODERM TRANSDERMAL 14 MG TRANSDERM (09:01)
[2024-04-23] MEDS: LOW STRENGTH ASPIRIN 81 MG PO (09:01)
[2024-04-23] MEDS: LASIX 40 MG IV (09:02)
[2024-04-23] MEDS: FOLVITE 1 MG PO (09:02)
[2024-04-23] MEDS: COREG 12.5 MG PO ×2 (09:02→19:30)
[2024-04-23] MEDS: ZESTRIL 5 MG PO (09:02)
[2024-04-23] MEDS: VITAMIN B1 100 MG PO ×2 (09:02→19:29)
--- NOTE | 2024-04-23 09:20 | W.PN.CARDCBS ---
Addendum entered and electronically signed by Nida Palacio PA-C 04/23/24 13:27:
correction to below: should read acute on chronic HFrEF
Addendum entered and electronically signed by Nida Palacio PA-C 04/23/24 11:24:
Blood pressures presently in 80s over 60s prior to receiving first dose of aldactone. Patient asymptomatic. Will hold Aldactone for now and follow. Per nursing patient eager for discharge. Discussed with patient this morning that she is not
ready from cardiac standpoint to go home yet.
Addendum entered and electronically signed by Imelda Renee DO 04/23/24 10:37:
I saw and examined the patient.
The Computer Aided Design Drafter's note was reviewed and I agree with the note.
Comment: Patient seen and examined with her present (sleeping in her bed). She is lying supine and denies shortness of breath, chest pain or pressure, palpitations or dizziness. No lower extremity edema or abdominal distention.
General: No acute distress, AAOX3
Heart: Regular, +s3 positive S1/S2, No murmur
Lungs: CTA b/l, negative wheezes/rales/rhonchi
Abd: Positive BS, NT/ND, neg rebound/rigidity/guarding
Ext: Warm distal extremities. No edema.
Neuro: nonfocal
Plan:
Nonischemic cardiomyopathy, suspect alcohol related
-2D echocardiogram 04/20/2024 with ejection fraction 20 to 25% with grade 2 diastolic dysfunction, moderate TR and mild to moderate MR.
-Right/left heart catheterization 04/22/2024 also reviewed: Moderate nonobstructive coronary artery disease with pulmonary capillary wedge pressure 20/LVEDP 18; cardiac index was low at 1.3. SVR 2852
-Heart failure education/diet education ongoing
-Case management trying to assist with her obtaining medical assistance after she let insurance lapse
-Tobacco and alcohol cessation strongly advised
-Discussed conditions, heart failure monitoring, heart failure symptoms, medications and need for medical compliance including consequences of poor compliance
-Optimize goal-directed medical therapy as able limited by lack of insurance. Continue carvedilol, lisinopril and add low-dose Aldactone. Continue IV Lasix.
-Likely transition to oral Lasix 04/24/2024
-Will need a repeat echocardiogram in 3 months on goal-directed medical therapy to reevaluate ejection fraction. She did have brief, 4 beat run of NSVT and PVCs on telemetry.
-If no improvement in LV ejection fraction we discussed secondary prevention ICD implant
-Keep K greater than 4, mag greater than 2
-She appears overwhelmed by our conversation and may benefit from outpatient psychiatry and alcohol rehab
Original Note:
Today's Communication / Plan
-
continue IV lasix, consider transition to po 04/24
continue coreg, lisinopril. consider addition of low dose aldactone pending BPs
BMP/proBNP/mag in 1 week
ETOH and tobacco cessation. med compliance
will need repeat echo in 3 months to reeval EF
Impression / Plan
-
Primary In Store Marketing Representative: Dr. Aguilar, last seen in 2021
Assessment:
Presentation with SOB, abd bloating
Acute on chronic HFpEF
History of suspected ETOH NICM, recovered
HTN
Ongoing tobacco use
Daily ETOH use
History of noncompliance
Echo 11/29/2014: EF 10 to 15%, global hypokinesis, biatrial dilatation, moderate MR, mild AR, moderate TR with PAP 35 to 40 mmHg
ECHO 10/05/15: EF 40%, mild global hypokinesis, mild cLVH, mild AR
ECHO 09/24/2019: EF 50 to 55%, MAC, mild MR, mild TR, PAP 50 mmHg
ECHO 11/22/21: EF 57%, mild concentric LVH, MAC, mild MR, normal right heart
ECHO 04/20/24: EF 20 to 25%, mild concentric LVH, global hypokinesis, stage II diastolic dysfunction, dilated RA, mild to moderate MR, mild AR, moderate TR, mild NV
Plan:
-Patient presents with acute CHF after running out of her medications including lasix after losing her health insurance.
-She has history of recovered nonischemic cardiomyopathy. Repeat echo this admission with EF again reduced at 20 to 25%.
-Underwent left and right heart cath on 04/22/2024. She had moderate nonobstructive coronary disease and was noted to have PCWP of 20/LVEDP 18. Cardiac index was low at 1.3.
-Diuresing well. Reports continued good urine output with IV Lasix 40 mg daily. Creatinine stable at 1.0. was on po lasix 40mg daily in past. consider transition to po 04/24
-reviewed CHF education with patient including importance of daily weights. we reviewed her echo and cath results and discussed severity of her cardiac issues
-on review of tele overnight she is in SR with PVCs, 1 4-beat run of NSVT, and what appears to be an intermittent bundle. patient asymptomatic. K stable
-uptitration of GDMT as able. currently on coreg 12.5mg BID, lisinopril 5mg daily. hopefully can try to add aldactone low dose today. will not be able to afford Adyenxiga/jardiance at this time.
-tobacco and ETOH cessation encouraged
-will arrange OP cardiac follow up. possible DC in AM with BMP/proBNP/mag in 1 week
-will need repeat echo in 3 months to reeval EF
-d/w nursing
Progress Note - In Store Marketing Representative
Subjective
Date of Service: April 23, 2024
feeling well. eager for DC
Objective
Labs:
04/23/24 02:57
04/23/24 02:57
Labs
Hgb 15.8 g/dL (12.0-16.0) 04/23/24 02:57
Hct 46.7 % (37.0-47.0) 04/23/24 02:57
Plt Count 258 10^3/uL (130-400) 04/23/24 02:57
Sodium 135 mmol/L (135-145) 04/23/24 02:57
Potassium 4.4 mmol/L (3.5-5.1) 04/23/24 02:57
BUN 39 mg/dl (7-17) H 04/23/24 02:57
Creatinine 1.0 mg/dL (0.6-1.0) 04/23/24 02:57
Glucose 114 mg/dl (70-99) H 04/23/24 02:57
Vital Signs and I&O:
Vital Signs
Temp Pulse Resp BP Pulse Ox
98.1 F 72 18 107/72 99
04/23/24 02:54 04/23/24 02:54 04/23/24 02:54 04/23/24 09:02 04/23/24 02:54
Vital Signs
Temp Pulse Resp BP Pulse Ox
98.1 F 72 18 107/72 99
04/23/24 02:54 04/23/24 02:54 04/23/24 02:54 04/23/24 09:02 04/23/24 02:54
Intake & Output
04/21/24 04/22/24 04/23/24 04/24/24
07:59 07:59 07:59 07:59
Intake Total 720 / 720 600 / 600
Balance 720 / 720 600 / 600
Physical Exam
Physical Exam
GEN: No distress, awake, alert, oriented x3. sitting in chair
HEENT: supple, anicteric, mmm, eomi
LUNGS: CTA B/L
CV: Reg, S1/S2, no murmur
ABD: soft, BS+, NT/ND
EXT: No cyanosis, clubbing, edema
NEURO: Gross non-focal
SKIN: Warm, pink, dry. No rash. L wrist site c/d/i.
[2024-04-23 09:48] LABS: HDL Cholesterol 51 mg/dl; LDL Cholesterol, Calculated 116 mg/dl; Total Cholesterol 199 mg/dl (50-199); Triglyceride 160 mg/dl (10-149); Very Low Density Lipoprotein 32 mg/dl (0-30)
--- NOTE | 2024-04-23 12:07 | W.PN.HOSP.TC ---
Today's Communication/Plan
-
monitor BP with GMDT titrations
hopefully dc in 24 hours if stable BP and labs
Assessment / Plan
Assessment / Plan
Assessment:
Acute HFrEF
- CXR with cardiomegaly
- evidence of volume overload (Abd distention, crackles), BNP>9000
- continue IV Lasix, 40mg daily - requires intensive monitoring of I/Os, weights, lytes
- prior GDMT included Coreg and Lisinopril - but has not filled in months due to insurance lapse
- echo: ECHO 04/20/24: EF 20 to 25%, mild concentric LVH, global hypokinesis, stage II diastolic dysfunction, dilated RA, mild to moderate MR, mild AR, moderate TR, mild TN
- CHF Education
- Cardiology following
- s/p left and right heart cath on 04/22/2024. moderate nonobstructive coronary disease and was noted to have PCWP of 20/LVEDP 18. Cardiac index was low at 1.3.
- GDMT: Coreg/Lisinopril
Essential HTN
- continue Coreg and Lisinopril - CM to assist with pricing/discount options
NSVT
- monitor tele; monitor lytes
active tobacco abuse
- reports 1 pack every 3 days
- nicotine patch
- encouraged cessation
daily ETOH intake
- reports 2-3 drinks daily
- MSAS protocol
- encouraged cessation
DVT ppx: Lovenox
Code: Full
Anticipated Discharge: 24 - 48 hours
Subjective/Interval History
-
Date of Service: April 23, 2024
She feels ok no complaints
Objective Data
-
Labs:
Laboratory Results
04/23/24
02:57
WBC 7.5
Hgb 15.8
Hct 46.7
Plt Count 258
Sodium 135
Potassium 4.4
Chloride 104
Carbon Dioxide 23
BUN 39 H
Creatinine 1.0
Glucose 114 H
Calcium 10.0
Total Bilirubin 0.9
AST 18
ALT 23
Alkaline Phosphatase 65
Vital Signs:
Vital Signs
Temp Pulse Resp BP Pulse Ox
97.5 F 59 16 86/68 96
04/23/24 11:17 04/23/24 11:17 04/23/24 11:17 04/23/24 11:17 04/23/24 11:17
I&O
04/22/24 04/23/24 04/24/24
06:59 06:59 06:59
Intake Total 600 / 600 480 / 480
Balance 600 / 600 480 / 480
Physical Exam
-
General: No Apparent Distress
HEENT: Normocephalic and Atraumatic
Respiratory: Negative Wheezes
Cardiac: Regular Rhythm and S1/S2
GI: Soft and Nontender
Genito-urinary: No Costovertebral Tender
Neuro: AO x 3
Hematologic / Lymphatic: No Lymphadenopathy
Psych: Calm
Data Reviewed
-
Total Time Spent with Patient (in minutes): 41
Labs: Labs Reviewed by me
--- NOTE | 2024-04-23 13:19 | PN.CDI ---
CDI
- -
CDI:
Physician Documentation Request
Admit Date: 04/20/24 10:02
Dear Nida Palacio,
Patient presented to ED for worsening shortness of breath
Patient found to be in heart failure.
Hospitalist notes state 'Acute HFrEF'
Cardiology 'acute on chronic HFpEF'
04/20 Echo conclusion 'LV ejection fraction is 20-25%'
04/22 cardiac catheterization reports an EF of 10-15%
In an attempt to clarify potentially conflicting documentation, please clarify the type of CHF you are evaluating, treating or monitoring.
Type
Systolic
Diastolic
Combined Systolic/Diastolic
Other
Use of terms such as suspected, likely, concern for, or probable (associated with a specific diagnosis that is being evaluated, monitored, or treated as if it exists) are acceptable and can be coded in the inpatient setting, when documented at the
time of discharge.
Thank you,
Nikki Mirza RN, BSN
CDI Specialist
tiger text
Please use your independent medical judgment in providing your response.
--- NOTE | 2024-04-23 15:10 | CM ---
CM following for DC planning needs.
Patient has no medical insurance. CM had contacted [facility] rep, Peggy, who is working on obtaining MA for patient.
Pt. will need to pay guzman pastor for her prescriptions, therefore medications should be GENERIC.
I priced the following medications thru [employer]-
Carvedilol 12.5 mg- $7 @ [facility]. I printed out coupon and placed in DC folder
Lisinopril 5 mg- $6.17 @ [facility]. I printed out coupon and placed in DC folder
Lipitor 20 mg- $15.77 @ [facility]. I printed out coupon and placed in DC folder
* Should medications change or patient wish to shop around, she can access [email or web address] and look at alternative pharmacies.
I also printed out info. on [facility]; eligibility and how to initiate services and placed in chart.
Plan is for home once medically stable.
CM to remain avail.
[2024-04-23] MEDS: LOVENOX 40 MG SC (17:31)
[2024-04-23] MEDS: LIPITOR 20 MG PO (17:31)
--- NOTE | 2024-04-23 17:51 | PTCARENOTE ---
pt continues to be sr on the monitor, w/ PVCs, vss. pt offers no complaints at this time. pt educated on plan of care and pt verbalized understanding. right radial and groin site cdi. call oliva within reach.
--- NOTE | 2024-04-23 20:52 | PTCARENOTE ---
Patient received at change of shift resting in the chair. The patient had multiple questions about a low salt diet and what to look for, discussed reading food labels and that takeout food is often very high in salt. Right groin and right radial
puncture sites with gauze and tegaderm C/D/I. Bilateral radial and pedal pulses palpable. Sinus rhythm on media consultant with occasional PVCs. Oxygen saturation on room air 97-98%. Plan of care discussed with patient. Call oliva within reach. Care
ongoing.
[2024-04-24 03:12] VITALS: BP 94/62
[2024-04-24 03:21] VITALS: BMI 24.1
[2024-04-24 03:34] LABS: Hematocrit 48.9 % (37.0-47.0); Hemoglobin 16.3 g/dL (12.0-16.0); Mean Corp Hgb Conc. 33.3 g/dL (33.0-37.0); Mean Corpuscular Hgb 29.5 pg (27.0-31.0); Mean Corpuscular Volume 88.6 fL (81.0-99.0); Mean Platelet Volume 11.2 fL (7.4-10.4); Platelet Count 240 10^3/uL (130-400); Red Blood Cell Count 5.52 10^6/uL (4.20-5.40); Red Cell Dist. Width 13.3 % (11.5-14.5); White Blood Cell Count 6.6 10^3/uL (4.8-10.8)
[2024-04-24 03:54] LABS: Blood Urea Nitrogen 35 mg/dl (7-17); Calcium 10.1 mg/dl (8.4-10.2); Carbon Dioxide 21 mmol/L (22-30); Chloride 103 mmol/L (98-107); Estimated Creatinine Clearance 58 ml/min; Glucose 106 mg/dl (70-99); Potassium 4.6 mmol/L (3.5-5.1); Sodium 135 mmol/L (135-145); eGFR > 60.00
[2024-04-24 04:03] LABS: NT-proBNP 708 pg/ml
[2024-04-24 06:57] VITALS: BP 97/65
[2024-04-24] MEDS: NICODERM TRANSDERMAL 14 MG TRANSDERM (08:07)
[2024-04-24] MEDS: LOW STRENGTH ASPIRIN 81 MG PO (08:08)
[2024-04-24] MEDS: ZESTRIL 5 MG PO (08:09)
[2024-04-24] MEDS: FOLVITE 1 MG PO (08:09)
[2024-04-24] MEDS: COREG 12.5 MG PO (08:09)
[2024-04-24] MEDS: VITAMIN B1 100 MG PO (08:10)
[2024-04-24] MEDS: LASIX 40 MG IV (08:10)
--- NOTE | 2024-04-24 09:40 | W.PN.CARDCBS ---
Addendum entered and electronically signed by Joe Andre MD 04/24/24 10:50:
Patient seen and examined
Cath results noted from yesterday
Feels well no chest pain today
Agree with PA-C note and assessment
With PA-C plan
����Physical Exam
���������������������General:��no apparent distress, not acutely ill
���������������������������Neck:��supple. no meningeal signs. normal psoterior pharynx
������������������������
���������������������������Heart:��s1/s2 regular rate and rhythm, no murmur. equal radial pulses.
��������������������������Lungs: ��no acute respiratory distress. clear bilaterally
����������������������Abdomen:�normal bowel sounds. not tender. no CVAT
��������������������������Neuro:��alert and oriented. no focal neurological deficits
������������������������������Skin: ��no rash
�����������������������Psychiatric:�well kept. interactive and cooperative
�����������������������Extremities:��no edema. no calf tenderness. negative homans. good distal pulses
��
�
Assessment:
Presentation with SOB, abd bloating
Acute on chronic HFrEF
History of suspected ETOH NICM, recovered
HTN
Ongoing tobacco use
Daily ETOH use
History of noncompliance
Echo 11/29/2014: EF 10 to 15%, global hypokinesis, biatrial dilatation, moderate MR, mild AR, moderate TR with PAP 35 to 40 mmHg
ECHO 10/05/15: EF 40%, mild global hypokinesis, mild cLVH, mild AR
ECHO 09/24/2019: EF 50 to 55%, MAC, mild MR, mild TR, PAP 50 mmHg
ECHO 11/22/21: EF 57%, mild concentric LVH, MAC, mild MR, normal right heart
ECHO 04/20/24: EF 20 to 25%, mild concentric LVH, global hypokinesis, stage II diastolic dysfunction, dilated RA, mild to moderate MR, mild AR, moderate TR, mild [place]
Plan:
-Presented with acute heart failure after running out of her medications including lasix after losing health insurance.
-Diuresing with IV lasix 40mg daily. Weight down 1lb overnight to 149 lbs. Will transition to PO lasix 40mg daily. This can be her discharge dose
-Creat stable at 1.0. Check BMP, proBNP, mag as OP in 1 week.
-Echo 04/20/2024 with EF reduced again, down to 20-25%. She has known h/o recovered CM
-Underwent left and right heart cath on 04/22/2024. She had moderate nonobstructive coronary disease and was noted to have PCWP of 20/LVEDP 18. Cardiac index was low at 1.3.
-Medical therapy added back as BP tolerated. Currently on Coreg and lisinopril. Would consider addition of spironolactone as outpatient if BP allows. Not able to add farxiga/jardiance at this time due to cost.
-tobacco and ETOH cessation encouraged
-Will need repeat echo in 3 months to reeval EF
-Follow up arranged
Original Note:
Today's Communication / Plan
-
Transition to PO lasix 40mg daily
Continue coreg and lisinopril
Continue aspirin, lipitor
Consider addition of spironolactone as OP
Follow up arranged. BMP, proBNP, and mag in 1 week
OK for discharge
Impression / Plan
-
Primary Settlement Processor: Dr. Aguilar, last seen in 2021
Assessment:
Presentation with SOB, abd bloating
Acute on chronic HFrEF
History of suspected ETOH NICM, recovered
HTN
Ongoing tobacco use
Daily ETOH use
History of noncompliance
Echo 11/29/2014: EF 10 to 15%, global hypokinesis, biatrial dilatation, moderate MR, mild AR, moderate TR with PAP 35 to 40 mmHg
ECHO 10/05/15: EF 40%, mild global hypokinesis, mild cLVH, mild AR
ECHO 09/24/2019: EF 50 to 55%, MAC, mild MR, mild TR, PAP 50 mmHg
ECHO 11/22/21: EF 57%, mild concentric LVH, MAC, mild MR, normal right heart
ECHO 04/20/24: EF 20 to 25%, mild concentric LVH, global hypokinesis, stage II diastolic dysfunction, dilated RA, mild to moderate MR, mild AR, moderate TR, mild [place]
Plan:
-Presented with acute heart failure after running out of her medications including lasix after losing health insurance.
-Diuresing with IV lasix 40mg daily. Weight down 1lb overnight to 149 lbs. Will transition to PO lasix 40mg daily.
-Creat stable at 1.0. Check BMP, proBNP, mag as OP in 1 week.
-Echo 04/20/2024 with EF reduced again, down to 20-25%. She has known h/o recovered CM
-Underwent left and right heart cath on 04/22/2024. She had moderate nonobstructive coronary disease and was noted to have PCWP of 20/LVEDP 18. Cardiac index was low at 1.3.
-Medical therapy added back as BP tolerated. Currently on Coreg and lisinopril. Would consider addition of spironolactone as OP if BP allows. Not able to add farxiga/jardiance at this time due to cost.
-tobacco and ETOH cessation encouraged
-Will need repeat echo in 3 months to reeval EF
-Follow up arranged
Progress Note - Settlement Processor
Subjective
Date of Service: April 24, 2024
No complaints this AM. Feeling well.
Objective
Labs:
04/24/24 03:19
04/24/24 03:19
Labs
Hgb 16.3 g/dL (12.0-16.0) H 04/24/24 03:19
Hct 48.9 % (37.0-47.0) H 04/24/24 03:19
Plt Count 240 10^3/uL (130-400) 04/24/24 03:19
Sodium 135 mmol/L (135-145) 04/24/24 03:19
Potassium 4.6 mmol/L (3.5-5.1) 04/24/24 03:19
BUN 35 mg/dl (7-17) H 04/24/24 03:19
Creatinine 1.0 mg/dL (0.6-1.0) 04/24/24 03:19
Glucose 106 mg/dl (70-99) H 04/24/24 03:19
Vital Signs and I&O:
Vital Signs
Temp Pulse Resp BP Pulse Ox
98 F 79 16 97/65 94
04/24/24 06:55 04/24/24 08:00 04/24/24 06:55 04/24/24 06:57 04/24/24 06:55
Vital Signs
Temp Pulse Resp BP Pulse Ox
98 F 79 16 97/65 94
04/24/24 06:55 04/24/24 08:00 04/24/24 06:55 04/24/24 06:57 04/24/24 06:55
Intake & Output
04/22/24 04/23/24 04/24/24 04/25/24
06:59 06:59 06:59 06:59
Intake Total 600 / 600 1200 / 1200
Balance 600 / 600 1200 / 1200
Physical Exam
Physical Exam
GEN: No distress, awake, alert, oriented x3
HEENT: supple, anicteric, mmm, eomi
LUNGS: CTA B/L
CV: Reg, S1/S2, no murmur
EXT: No cyanosis, clubbing, edema
NEURO: Gross non-focal
SKIN: Warm, pink, dry. No rash.
--- NOTE | 2024-04-24 09:46 | PTCARENOTE ---
Assumed care of pt from night RN. Pt received awake and alert, Ox3. VSS, CM shows NSR with occ PVC's, POX 94% on RA. Right wrist and groin dsg remains CDI. B/P remains soft. Pt's partner apparently slept in bed with pt last night??
[2024-04-24 10:53] VITALS: BP 91/61
--- NOTE | 2024-04-24 11:32 | W.PN.HOSP.TC ---
Today's Communication/Plan
-
dc to home
Assessment / Plan
Assessment / Plan
Assessment:
Acute HFrEF
- CXR with cardiomegaly
- evidence of volume overload (Abd distention, crackles), BNP>9000
- continue IV Lasix, 40mg daily - requires intensive monitoring of I/Os, weights, lytes
- prior GDMT included Coreg and Lisinopril - but has not filled in months due to insurance lapse
- echo: ECHO 04/20/24: EF 20 to 25%, mild concentric LVH, global hypokinesis, stage II diastolic dysfunction, dilated RA, mild to moderate MR, mild AR, moderate TR, mild GA
- s/p left and right heart cath on 04/22/2024. moderate nonobstructive coronary disease and was noted to have PCWP of 20/LVEDP 18. Cardiac index was low at 1.3.
- CHF Education
- cleared for DC
- Cardiac f/u
- dc on Lasix/Coreg/Lisinopril
Essential HTN
- continue Coreg and Lisinopril - CM to assist with pricing/discount options
NSVT
- monitor tele; monitor lytes
active tobacco abuse
- reports 1 pack every 3 days
- nicotine patch
- encouraged cessation
daily ETOH intake
- reports 2-3 drinks daily
- MSAS protocol
- encouraged cessation
DVT ppx: Lovenox
Code: Full
More than 30 minutes spent in discharge including
Final examination of the patient
Summarizing hospital stay
Instructions for continuing care to all relevant caregivers
Preparation of discharge records, prescriptions, and referral forms
Total time spent (in minutes):41
Anticipated Discharge: Today
Subjective/Interval History
-
Date of Service: April 24, 2024
feels well no complaints
Objective Data
-
Labs:
Laboratory Results
04/24/24
03:19
WBC 6.6
Hgb 16.3 H
Hct 48.9 H
Plt Count 240
Sodium 135
Potassium 4.6
Chloride 103
Carbon Dioxide 21 L
BUN 35 H
Creatinine 1.0
Glucose 106 H
Calcium 10.1
Vital Signs:
Vital Signs
Temp Pulse Resp BP Pulse Ox
98 F 79 16 97/65 94
04/24/24 06:55 04/24/24 08:00 04/24/24 06:55 04/24/24 06:57 04/24/24 09:40
I&O
04/23/24 04/24/24 04/25/24
06:59 06:59 06:59
Intake Total 1200 / 1200
Balance 1200 / 1200
Physical Exam
-
General: No Apparent Distress
HEENT: Normocephalic and Atraumatic
Respiratory: Negative Wheezes
Cardiac: Regular Rhythm and S1/S2
GI: Soft and Nontender
Genito-urinary: No Costovertebral Tender
Musculoskeletal: No Edema
Neuro: AO x 3
Psych: Calm
Data Reviewed
-
Total Time Spent with Patient (in minutes): 41
Labs: Labs Reviewed by me
--- NOTE | 2024-04-24 11:47 | W.DS.TRANS ---
DC Summary - Glassware Selector
-
Discharge Instructions:
Sleep Apnea Risk Low
Discharge Diagnosis/Procedures acute CHF, cardiac cath 04/22
Diet Low Cholesterol,2 Gram Sodium,Restrict fluids to
48 oz
D[address] Restrictions No driving for 24 hours
Blood Work BMP/proBNP/mag in 1 week
Specialty Instructions Weigh Daily
Instructions: *[facility] Heart Failure Instructions
Stand-Alone Forms: DC Instructions- Cath/EP Lab
Changes to Home Medications: No
Discharge Medications:
DC Medications w/original date entered in [employer]
Restless Leg Pm Tablets 3 - 4 tab PO HSPRN PRN rts 04/20/24
aspirin 81 mg chewable tablet 81 mg PO DAILY #100 tabs 04/24/24
atorvastatin 20 mg tablet 20 mg PO QPM #30 tabs 04/24/24
carvedilol 12.5 mg tablet 12.5 mg PO BID #60 tabs 04/24/24
furosemide 40 mg tablet (Lasix) 40 mg PO DAILY #30 tabs 04/24/24
lisinopril 5 mg tablet 5 mg PO DAILY #30 tabs 04/24/24
Home Medication Changes
Pending Results: No
Total time spent discharging patient (in min): 41
--- NOTE | 2024-04-24 13:58 | PTCARENOTE ---
All D/C info reviewed with pt and sig other, all questions answered. Pt D/C'd home with SO.
--- NOTE | 2024-04-26 10:08 | W.HF.CON ---
Heart Failure
- LV Function
Left ventricular function study result: LV Ejection fraction </= 35%
Ejection Fraction Percentage: 20-25
- ARNI
Patient already on ARNI: No
Heart Failure ARNI Contraindication: Hypotension, Patient Refusal
- ACEI/ARB
Patient already on ACEI/ARB: Yes
- Beta Allen
Patient already on Evidence Based Beta Allen: Yes
- Mineralocorticord Receptor Antagonist
Patient already on MRA: No
Heart Failure MRA Contraindication: Potentially Non-compliant, Hypotension
- SGLT-2 Inhibitor
Patient already on SGLT-2 Inhibitor: No
Heart Failure SGLT-2 Inhibitor Contraindication: Patient Refusal
- NYHA CHF Classification
NYHA CHF Classification Level: Class III - Symptoms w/ min exertion, interferes w/ nml daily activity
- ACC/AHA Stage
ACC/AHA Stage: Stage C: Symptomatic Heart Failure
== END 2024-04-24 13:59 | disposition home or self-care (01) | DRG 286 ==
LOC: IVU 10:02
PROVIDERS: Emergency Medicine; Internal Medicine Cardiovascular Disease; Internal Medicine Interventional Cardiology; ADMITTING PHYSICIAN Internal Medicine; CONSULT PHYSICIAN Internal Medicine Cardiovascular Disease; EMERGENCY PHYSICIAN Student in an Organized Health Care Education/Training Program
PROC: B2111ZZ Fluoroscopy of Multiple Coronary Arteries using Low Osmolar Contrast (ICD-10-PCS; 2024-04-22)
PROC: 4A023N8 Measurement of Cardiac Sampling and Pressure, Bilateral, Percutaneous Approach (ICD-10-PCS; 2024-04-22)
PROC: B2151ZZ Fluoroscopy of Left Heart using Low Osmolar Contrast (ICD-10-PCS; 2024-04-22)
DX: I11.0 Hypertensive heart disease with heart failure (principal); I50.23 Acute on chronic systolic (congestive) heart failure; I47.29 Other ventricular tachycardia; I42.6 Alcoholic cardiomyopathy; F10.10 Alcohol abuse, uncomplicated; G25.81 Restless legs syndrome; F17.210 Nicotine dependence, cigarettes, uncomplicated; Z79.82 Long term (current) use of aspirin; Z91.199 Patient's noncompliance with other medical treatment and regimen due to unspecified reason; Z82.49 Family history of ischemic heart disease and other diseases of the circulatory system; Z88.2 Allergy status to sulfonamides; Z91.040 Latex allergy status; Z59.71 Insufficient health insurance coverage
CPT/HCPCS: 71046; 80048; 80053; 80061; 83735; 83880; 84100; 84484; 85025; 85027; 85347; 87502; 87811; 93005; 93306; 93460; 96374; 99285; 99406; C1769; C1894; Q9967

== ENCOUNTER 2024-05-03 12:49 | Inpatient (IN) | payer MEDICAID, SELFPAY ==
[2024-05-02] VITALS (9 sets, daily range): BP systolic 95–124; BP diastolic 48–74; BMI 25.6; BMI 24.2
--- NOTE | 2024-05-02 08:34 | ED.GENMED ---
History of Present Illness
General
Chief Complaint: Breathing Problem
Time Seen by Provider: 05/02/24 08:22
History of Present Illness
History of Present Illness:
58-year-old female with history of nonischemic cardiomyopathy and chronic alcohol and tobacco use presents to the emergency department for evaluation of cough, sore throat, and dyspnea on exertion for the past 2 to 3 days. She was recently
hospitalized for acute CHF and found to have an EF of 20 to 25%. She has been compliant with her medications. She states she has gained 5 pounds since discharge however notes that she has 'fluid available at home the hospital'. Denies high salt
load. Leg swelling for frothy sputum.No fevers, chills, or sweats
Past History
Past History
ED Past Medical History: HTN and Other (Restless leg syndrome)
ED Past Surgical History: None
Social History
Tobacco: Smoker
Alcohol: Daily
Living: with family
Employment: Employed
Family History
Family History: Other (Noncontributory)
Review of Systems
Review of Systems
Allergies reviewed?: Yes
All Other Systems: ROS reviewed and negative except as documented in HPI and ROS
Phy Exam
Physical Exam
Physical Exam:
GEN: Well appearing, NAD, WDWN
Eyes: PERRLA, EOMs intact, no scleral icterus
HENT: NCAT, oral mucosa moist, no JVD
Lungs: CTAB, no wheezes, rales, rhonchi, normal chest wall excursion
Cardiac: RRR, no M/R/G, no peripheral edema. Radial pulses 2+ bilat
Neuro: AO x 3
MSK: No gross deformity or ecchymosis. No peripheral edema. + digital clubbing
Skin: No rashes, petechiae. Normal color, no pallor or jaundice.
Psych: Calm, cooperative, proper hygiene
Scores
Heart Failure Risk
Heart Failure Risk Score: Yes
History of Stroke or TIA: No
History of intubation for respiratory distress: No
Heart rate on ED arrival >/= 110: No
SaO2 <90% on arrival on room air: No
HR >/=110 during 3min walk test (or too ill to perform test): No
ECG has acute ischemic changes: No
Urea >/=12mmol/L (BUN 33.6mg/dL): No
Serum CO2>/=35mmol/L: No
Troponin I or T elevated to MO Level (0.4mg/dL): No
NT-proBNP >/=5,000ng/L (5,000pg/ml): No
HF Risk Score: 0
Admission Status: LOW RISK 2.8% Consider discharge to home with f/u visit to PCP/Laundry Operator
Course
Orders/Labs/Results
Orders:
Orders
05/02/24 08:36
Electrocardiogram (*1) Urgent
Reason for Study: Shortness of Breath
EKG- Treatment ONCE
CR Chest - 2 Views Urgent
Comment:
Reason For Exam: cough
05/02/24 08:53
Comprehensive Metabolic Panel Urgent
05/02/24 08:54
COVID-19 Antigen Urgent
Source: Nasal Swab
Complete Blood Count/With Diff Urgent
NT-proBNP Urgent
Troponin I Urgent
Influenza A+B Rapid Molecular Urgent
RHEA Source: Nasal Swab
Specimen Description:
05/02/24 11:14
Benzonatate [Tessalon Perles] 200 mg PO NOW STA
Hydrocodone Bit/Homatropine [Hycodan Syrup] 5 ml PO NOW STA
05/02/24 11:56
Furosemide [Lasix] 40 mg IV NOW STA
05/02/24 11:57
Ipratropium/Albuterol Sulfate [Duoneb] 3 ml INH R NOW ONE
Abnormal Lab Results
05/02/24 05/02/24
08:53 08:54
MPV 11.6 H fL
(7.4-10.4)
Absolute Monos (auto) 1.0 H 10^3/uL
(0.1-0.6)
Monocytes % 14.5 H %
(1.7-9.3)
Sodium 133 L mmol/L
(135-145)
BUN 22 H mg/dl
(7-17)
Glucose 131 H mg/dl
(70-99)
05/02/24 08:54
05/02/24 08:53
Vital Signs
Initial and Last Documented VS:
Initial Vital Signs
Temp Pulse Resp BP Pulse Ox
98.2 F 66 20 108/65 96
05/02/24 08:10 05/02/24 08:10 05/02/24 08:10 05/02/24 08:10 05/02/24 08:10
Last Documented Vital Signs
Temp Pulse Resp BP Pulse Ox
98.2 F 60 17 114/73 95
05/02/24 08:10 05/02/24 14:30 05/02/24 14:30 05/02/24 14:00 05/02/24 14:00
MDM/Problems Addressed
MDM/Problems Addressed:
Patient was seen in consultation by cardiology, at this time it is not clear whether her cough and shortness of breath to CHF with dietary noncompliance versus bronchitis/COPD exacerbation. She was treated with antitussives, diuretics, and
bronchodilators without any significant improvement. Given her tenuous cardiac status we will admit for further evaluation and management
*Critical Care Note
Total Time (30-74mins, 75-104mins- exclusive of procedures): Not Applicable
ED Attending Note
-
Portions of this chart may have been created with voice recognition software.� Occasional wrong word or��sound alike� substitutions may have occurred due to the inherent limitations of voice recognition software.
Discharge Plan
Departure
Patient Disposition: Admit
Date of Disposition: 05/02/24
Time of Disposition: 13:46
Admit to: Telemetry
Presentation/result/management discussed w/ accepting MD/DO: Hospitalist
Discharge Problem:
Shortness of breath, HFrEF (heart failure with reduced ejection fraction), Tobacco abuse
Prescriptions:
No Action
Restless Leg Pm Tablets
3 - 4 tab PO HSPRN PRN (Reason: rts)
atorvastatin 20 mg Tablet
20 mg PO QPM Qty: 30 0RF
carvedilol 12.5 mg Tablet
12.5 mg PO BID Qty: 60 0RF
aspirin 81 mg Tablet,Chewable
81 mg PO DAILY Qty: 100 0RF
lisinopril 5 mg Tablet
5 mg PO DAILY Qty: 30 0RF
furosemide [Lasix] 40 mg tablet
40 mg PO DAILY Qty: 30 0RF
Rx Instructions:
tolerated in hospital
Referrals:
NONE,* [Family Provider] -
Interventions
Interventions:
*Risk Screen - Suicide Last Done: 05/02/24 08:49
*General Assessment Last Done: 05/02/24 08:49
*Neglect/Abuse Screening Last Done: 05/02/24 08:49
*ED- Fall Risk Assessment Last Done: 05/02/24 08:49
*ED COVID-19 Vaccine History Last Done: 05/02/24 08:49
ED- Cardiac Assessment Last Done: 05/02/24 09:38
ED- Pulmonary Assessment Last Done: 05/02/24 09:38
Discharge Date and Time
Print Language: LITHUANIAN
[2024-05-02 09:01] LABS: % Basophils 0.9 % (0-2); % Eosinophils 0.5 % (0-6); % Immature Granulocytes 0.3 % (0-0.5); % Lymphocytes 24.5 % (20.5-51.1); % Monocytes 14.5 % (1.7-9.3); % Neutrophils 59.3 % (42.2-75.2); Absolute Basophils 0.1 10^3/uL (0-0.2); Absolute Lymphocytes 1.6 10^3/uL (1.2-3.4); Absolute Neutrophils 3.9 10^3/uL (1.4-6.5); Hematocrit 44.6 % (37.0-47.0); Mean Corp Hgb Conc. 33.6 g/dL (33.0-37.0); Mean Corpuscular Hgb 29.4 pg (27.0-31.0); Mean Corpuscular Volume 87.3 fL (81.0-99.0); Mean Platelet Volume 11.6 fL (7.4-10.4); Nucleated Red Blood Cells % 0 %; Platelet Count 226 10^3/uL (130-400); Red Blood Cell Count 5.11 10^6/uL (4.20-5.40); Red Cell Dist. Width 13.1 % (11.5-14.5); White Blood Cell Count 6.6 10^3/uL (4.8-10.8)
[2024-05-02 09:15] LABS: ALT (SGPT) 27 U/L (0-35); AST (SGOT) 22 U/L (14-36); Albumin 3.9 g/dl (3.5-5.0); Alkaline Phosphatase 70 U/L (38-126); Blood Urea Nitrogen 22 mg/dl (7-17); Calcium 9.5 mg/dl (8.4-10.2); Carbon Dioxide 24 mmol/L (22-30); Chloride 101 mmol/L (98-107); Estimated Creatinine Clearance 58 ml/min; Glucose 131 mg/dl (70-99); Potassium 4.5 mmol/L (3.5-5.1); Sodium 133 mmol/L (135-145); Total Bilirubin 1.1 mg/dl (0.2-1.3); Total Protein 6.5 g/dl (6.3-8.2); eGFR > 60.00
[2024-05-02 09:15] LABS: COVID-19 Antigen Negative (Negative)
[2024-05-02 09:27] LABS: NT-proBNP 4730 pg/ml; Troponin I < 0.012 ng/ml
[2024-05-02] MEDS: HYCODAN SYRUP 5 ML PO (11:21)
[2024-05-02] MEDS: TESSALON PERLES 200 MG PO ×2 (11:21→22:08)
--- NOTE | 2024-05-02 11:42 | CON.CAR ---
Consultation
Consultation Request
Date/Time Consultation Requested: 05/02/24
Date/Time Consultation Performed: 05/02/24
Requesting Provider: Dr. More
Performing Provider: Dr. Renee
Reason for Consultation: cough, SOB
Medical History
-
Chief Complaint: SOB/cough
History of Present Illness:
Patient is a 58-year-old female with longstanding nonischemic cardiomyopathy suspected alcohol related with recent hospitalization from 04/20 - 04/24/2024 for acute heart failure with reduced ejection fraction after running out of her medications and
salt rich diet due to insurance lapse. An echocardiogram during this hospitalization on 04/20/2024 found an EF of 20 to 25% with grade 2 diastolic dysfunction, moderate TR and mild to moderate MR. She had a right/left heart catheterization
04/22/2024 also reviewed: Moderate nonobstructive coronary artery disease with pulmonary capillary wedge pressure 20/LVEDP 18; cardiac index was low at 1.3; SVR 2852. She did not require inotropes with improved volume status with IV Lasix. Her
initial proBNP that admission was 9510 and at day of discharge was 708. At the time of her last admission her initial weight was 261 pounds and improved to 149 pounds at day of discharge. She was discharged on aspirin 81 mg daily, atorvastatin 20
mg daily, carvedilol 12.5 mg twice daily, Lasix 40 mg daily, and lisinopril 5 mg daily with goal-directed medical therapy largely limited by lack of insurance and low blood pressure. She states since discharge she has been compliant with her
medications although has admitted to missing some of her evening doses of carvedilol and atorvastatin. She denies missed doses of Lasix but does admit to salt rich foods snack foods including Cheetos. She denies alcohol use however has started to
smoke again. Over the last couple of days she has developed a largely nonproductive cough that is keeping her up all night with worsening shortness of breath and has noted a 5 pound weight gain and some mild abdominal distention prompting her to
return to the ER. She denies fevers or chills. She denies chest pain or pressure, edema, lightheadedness, syncope or near syncope.
.
Initial lab work: Hemoglobin 15, WBC 6.6, platelets 226, sodium 133, potassium 4.5, BUN and creatinine 22/1. Random glucose 131. LFTs within normal limits. Troponin less than 0.012. proBNP 4730. COVID and flu assays negative. Chest x-ray with
no acute cardiopulmonary process. EKG sinus rhythm with minimal voltage criteria for LVH, left atrial enlargement and ST-T wave abnormality in the lateral leads similar to prior EKGs. Weight this admission 150 pounds
PMH:
History of suspected ETOH NICM
Chronic HFimpEF
HTN
Ongoing tobacco use
Daily ETOH use
History of noncompliance
Past Medical History
Past Medical History: Other (in HPI)
Social History
Tobacco: Smoker
Alcohol: Daily
Personal:
Living: With Family
Employment: Not Employed
Family History
Family History: CAD
Allergies / Home Medications
Allergy/AdvReac Type Severity Reaction Status Date / Time
latex Allergy Intermediate Itching Verified 05/02/24 08:13
Sulfa (Sulfonamide Allergy Intermediate Itching Verified 05/02/24 08:13
Antibiotics)
�Medication �Instructions �Recorded �Confirmed �Type
Restless Leg Pm Tablets 3 - 4 tab PO HSPRN PRN rts 04/20/24 04/20/24 History
aspirin 81 mg chewable tablet 81 mg PO DAILY #100 tabs 04/24/24 Rx
atorvastatin 20 mg tablet 20 mg PO QPM #30 tabs 04/24/24 Rx
carvedilol 12.5 mg tablet 12.5 mg PO BID #60 tabs 04/24/24 Rx
furosemide 40 mg tablet (Lasix) 40 mg PO DAILY #30 tabs 04/24/24 Rx
lisinopril 5 mg tablet 5 mg PO DAILY #30 tabs 04/24/24 Rx
Review of Systems
-
History Source: Patient
All other systems: Negative unless noted
Constitutional: Weight Gain, Sleep Disturbance and Chills
EENT: No Symptoms
Respiratory: Cough and Trouble Breathing
Cardiac: No Symptoms
Abdomen/GI: No Symptoms
: No Symptoms
Musculoskeletal: No Symptoms
Neurological: No Symptoms
Endocrine: No Symptoms
Hematologic/Lymphatic: No Symptoms
Physical Exam
Vital Signs
Temp Pulse Resp BP Pulse Ox
98.2 F 63 17 108/65 94
05/02/24 08:10 05/02/24 09:32 05/02/24 09:32 05/02/24 08:10 05/02/24 09:38
Lab Results
05/02/24 08:54
05/02/24 08:53
Troponin I < 0.012 ng/ml 05/02/24 08:54
Jhj-O-Emwthinlhla Pept 4730 pg/ml 05/02/24 08:54
Physical Exam
General: Well Developed, Well Nourished, Comfortable and Other (Dry cough throughout exam)
HEENT: Normocephalic, Anicteric and Moist Mucous Membranes
Respiratory: Other (Bronchovesicular breath sounds with diffuse end expiratory wheezing, rhonchi and faint crackles right base)
Cardiac: S1/S2, Regular Rhythm, JVD and Other (Warm distal extremity); Negative Murmur, Rub or Peripheral Edema
GI: Soft, Non Tender, Non Distended and Normal Bowel Sounds
Musculoskeletal: No Edema
Neuro: AO x 3 and Nonfocal/Grossly Intact
Psych: Calm
Impression / Plan
-
Primary Territory Sales Executive: Dr. Aguilar, last seen in 2021
Assessment:
Presentation with SOB, abd bloating
Acute on chronic HFrEF
History of suspected ETOH NICM, recovered
HTN
Ongoing tobacco use
Daily ETOH use
History of noncompliance
Echo 11/29/2014: EF 10 to 15%, global hypokinesis, biatrial dilatation, moderate MR, mild AR, moderate TR with PAP 35 to 40 mmHg
ECHO 10/05/15: EF 40%, mild global hypokinesis, mild cLVH, mild AR
ECHO 09/24/2019: EF 50 to 55%, MAC, mild MR, mild TR, PAP 50 mmHg
ECHO 11/22/21: EF 57%, mild concentric LVH, MAC, mild MR, normal right heart
ECHO 04/20/24: EF 20 to 25%, mild concentric LVH, global hypokinesis, stage II diastolic dysfunction, dilated RA, mild to moderate MR, mild AR, moderate TR, mild TX
Plan:
Acute on chronic HFrEF
-proBNP elevated since discharge on 04 24 with 5 pound weight gain
-Although she has been mostly compliant with her medication she has admitted to higher salt meals
-IV Lasix
-Will transition lisinopril to ARB given her dry cough
-Add Aldactone
-Ask case management to reassess where we are with medical assistance
-Continue to stress education regarding heart failure diet along with salt and fluid restrictions.
-Reiterated the importance of both alcohol and tobacco cessation
-No need to repeat 2D echocardiogram
Dry cough/wheeze, likely multifactorial
-No leukocytosis or fever with flu/COVID assays negative
-Chest x-ray clear
-Diurese as above. Additionally will change Lasix to ARB
-I suspect she has a component of COPD with ongoing tobacco dependence and would benefit from a pulmonary consult
Moderate nonobstructive coronary artery disease�no active symptoms
-Troponin less than 0.012
-Continue aspirin, statin
-Tobacco cessation strongly advised
Alcohol dependency-MSAA per primary. Again encourage cessation
Tobacco dependence- Nicotine patch. Cessation strongly advised.
Data Reviewed
-
EKG: Report Reviewed by me
Radiology: Report Reviewed by me
Labs: Labs Reviewed by me
Old Records: Reviewed
[2024-05-02] MEDS: LASIX 40 MG IV (12:18)
[2024-05-02] MEDS: DUONEB 3 ML INH (12:18)
--- NOTE | 2024-05-02 14:11 | HPS.HSE ---
Family Physician
-
Family Physician: * NONE
Chief Complaint
-
shortness of breath and dry cough
History of Present Illness
Patient is a 58-year-old female with past medical history significant for essential hypertension, hypercholesteremia and HFrEF who presented to [facility] ED for evaluation of shortness of breath and dry cough for past 2-3 days. Patient
recently hospitalized for acute CHF from 04/20/2024 to 04/24/2024 and found to have HFrEF with EF of 20-25%. Patient discharged on 04/24/2024 with instructions to follow up with cardiology out patient and to call and report increased symptoms or a
weight gain of >5 pounds in a week. Patient states that she has gained 5 pounds since discharge and the last 3 days has had a dry cough that is keeping her up at night and is non-productive. She reports chills over past fever days with increased
shortness of breath when coughing or with exertion. Denies any other symptoms; palpitations, chest pain, dizziness, fever, constipation, diarrhea or urinary symptoms.
Medical History
Past Medical History
Past Medical History: Reports Other
Additional Past Medical History:
essential hypertension
hypercholesteremia
HFrEF
restless leg syndrome
nicotine dependency
ETOH dependency
Past Surgical History: Reports Other
Additional Past Surgical History:
carrdiac cath
Social History
Tobacco: Smoker (1 pack over 3 days)
Alcohol: Daily
Drug: None
Personal:
Living: With Family
Employment: Not Employed
Family History
Family History: CAD
Allergies / Home Medications
Allergies reflects when Allergies were last updated in [employer].
Home Medications with original date entered in [employer]
Allergy/Medication List:
Allergies
Allergy/AdvReac Type Severity Reaction Status Date / Time
latex Allergy Intermediate Itching Verified 05/02/24 08:13
Sulfa (Sulfonamide Allergy Intermediate Itching Verified 05/02/24 08:13
Antibiotics)
Home Medications
Restless Leg Pm Tablets 3 - 4 tab PO HSPRN PRN rts 04/20/24
aspirin 81 mg chewable tablet 81 mg PO DAILY #100 tabs 04/24/24
atorvastatin 20 mg tablet 20 mg PO QPM #30 tabs 04/24/24
carvedilol 12.5 mg tablet 12.5 mg PO BID #60 tabs 04/24/24
furosemide 40 mg tablet (Lasix) 40 mg PO DAILY #30 tabs 04/24/24
lisinopril 5 mg tablet 5 mg PO DAILY #30 tabs 04/24/24
Review of Systems
-
History Source: Patient
Constitutional: Reports Sleep Disturbance
EENT: Reports No Symptoms
Respiratory: Reports Cough and Trouble Breathing (shortness of breath following coughing or with exertion)
Cardiac: Reports No Symptoms
Abdomen/GI: Reports No Symptoms
: Reports No Symptoms
Musculoskeletal: Reports No Symptoms
Skin: Reports No Symptoms
Neurological: Reports No Symptoms
Endocrine: Reports No Symptoms
Hematologic/Lymphatic: Reports No Symptoms
Psych: Reports No Symptoms
Physical Exam
Vital Signs
Vital Signs
Temp Pulse Resp BP Pulse Ox
98.2 F 57 20 110/70 95
05/02/24 08:10 05/02/24 13:15 05/02/24 13:15 05/02/24 13:00 05/02/24 13:00
Physical Exam
General: Well Developed, Well Nourished, Comfortable and Conversant
HEENT: NormoCephalic, Moist mucous membranes, Atraumatic, [place] Conjunctivae, Nose Appears Normal and Ears Appear Normal
Respiratory: Clear and Non Labored Respirations
Cardiac: S1/S2 and Regular Rhythm; No Murmur, Rub or Gallop
Breast: Deferred by me
GI: Soft, Non Tender, Non Distended and Normal Bowel Sounds; No Organomegaly
Rectal: Deferred by Provider
Genito-urinary: Deferred by me
Musculoskeletal: No Clubbing, No Cyanosis and No Edema
Skin: Warm and IV/Catheter Site; No Rash
Neuro: Awake, Alert, AO x 3 and Nonfocal/grossly intact
Psych: Calm
Laboratory Results
-
05/02/24 08:54
05/02/24 08:53
Laboratory Results
Total Bilirubin 1.1 mg/dl (0.2-1.3) 05/02/24 08:53
AST 22 U/L (14-36) 05/02/24 08:53
ALT 27 U/L (0-35) 05/02/24 08:53
Alkaline Phosphatase 70 U/L (38-126) 05/02/24 08:53
Troponin I < 0.012 ng/ml 05/02/24 08:54
Data Reviewed
-
Diagnostic Radiology: Report Reviewed by me (CXR: No acute cardiopulmonary abnormality.)
Medical Tests (Nuc Med, Echo, EKG etc): Report Reviewed by me (EKG: NORMAL SINUS RHYTHM POSSIBLE LEFT ATRIAL ENLARGEMENT MINIMAL VOLTAGE CRITERIA FOR LVH, MAY BE NORMAL VARIANT ( Geraldo product ) ST and T WAVE ABNORMALITY, CONSIDER LATERAL ISCHEMIA)
Lab Data: Labs Reviewed by me (BNP 4730)
Impression/Plan
-
IMPRESSION/PLAN:
#shortness of breath, dry cough, 5 pound weight gain
#HFrEF
BNP 4730
EKG: NORMAL SINUS RHYTHM
POSSIBLE LEFT ATRIAL ENLARGEMENT
MINIMAL VOLTAGE CRITERIA FOR LVH, MAY BE NORMAL VARIANT ( Geraldo product )
ST and T WAVE ABNORMALITY, CONSIDER LATERAL ISCHEMIA
CXR: No acute cardiopulmonary abnormality.
ECHO (04/20/24/): Left ventricle is severely dilated. Mild concentric left ventricular hypertrophy. Moderately reduced left ventricular systolic function. Global hypokinesis. LV ejection fraction is 20-25%.
Stage II diastolic dysfunction suggestive of abnormal relaxation and increased filling pressures.
Indexed LA volume is moderately abnormal (42-48 mL/m2).
Dilated right atrium.
Mild to moderate mitral regurgitation.
Mild aortic regurgitation.
Moderate tricuspid regurgitation.
Mild pulmonic regurgitation.
Compared to prior echocardiogram from September 24, 2019, LV dysfunction is new.
Previously LVEF is estimated at 50 to 55%. Previously left atrial and right atrial sizes were normal. Previously there was mild mitral regurgitation.
Of note, echocardiogram from 2016 found LVEF of 40% with global hypokinesis.
Echocardiogram from 2014 found LVEF of 10 to 15% with global hypokinesis
- consult cardiology
- daily weights
- continue carvedilol
- hold PO Lasix
- IV Lasix
#essential hypertension
- continue carvedilol, furosemide and lisinopril
#hypercholesteremia
- continue aspirin and atorvastatin
#nicotine dependency
1 pack every 3 days
- nicotine patch
- encourage cessation
#ETOH dependency
reports drinking daily
- MSAS
- encourage cessation
Code status: full code
DVT prophylaxis: Lovenox sq
--- NOTE | 2024-05-02 15:13 | W.PN.UPDATE ---
Update Note
Progress Note Update
This is an addendum to the H&P written by Milka Swift on 05/02/2024. Patient seen and examined independently with FARM PLANNER.
58-year-old female past medical history of nonischemic cardiomyopathy, HFrEF, hypertension, NSVT, tobacco use, alcohol use, presenting with dry cough, shortness of breath and 5 pound weight gain.
Cardiac BNP of 4700. Chest x-ray shows no acute cardiopulmonary abnormality. Crackles bilaterally on examination. COVID and flu negative.
Patient recently hospitalized from 04/20 to 04/24 for acute CHF exacerbation and she had echo showing EF of 20 to 25%, catheterization low cardiac index.
Presentation consistent with acute HFrEF exacerbation. IV Lasix, cardiology consulted.
--- NOTE | 2024-05-02 17:00 | PTCARENOTE ---
Received patient to ED via stretcher. Pt AAOX3. Pox: 96% RA. NSR on playground monitor. Call oliva within reach. Plan of care ongoing.
[2024-05-02] MEDS: LIPITOR 20 MG PO (17:23)
[2024-05-02] MEDS: LOVENOX 40 MG SC (17:23)
[2024-05-02] MEDS: COREG 12.5 MG PO (21:02)
[2024-05-02] MEDS: ROBITUSSIN 200 MG PO (21:10)
[2024-05-02] MEDS: MELATONIN 5 MG PO (22:08)
[2024-05-03] MEDS: ROBITUSSIN 200 MG PO ×2 (01:28→09:24)
[2024-05-03 03:55] VITALS: BP 116/78
[2024-05-03] MEDS: HYCODAN SYRUP 5 ML PO (04:41)
[2024-05-03 08:00] LABS: Blood Urea Nitrogen 30 mg/dl (7-17); Calcium 9.3 mg/dl (8.4-10.2); Carbon Dioxide 22 mmol/L (22-30); Chloride 99 mmol/L (98-107); Estimated Creatinine Clearance 58 ml/min; Glucose 112 mg/dl (70-99); Potassium 4.4 mmol/L (3.5-5.1); Sodium 131 mmol/L (135-145); eGFR > 60.00
[2024-05-03 08:22] VITALS: BP 98/59
[2024-05-03] MEDS: TESSALON PERLES 200 MG PO ×3 (09:24→22:01)
[2024-05-03] MEDS: NICODERM TRANSDERMAL 14 MG TRANSDERM (09:25)
[2024-05-03] MEDS: LOW STRENGTH ASPIRIN 81 MG PO (09:26)
--- NOTE | 2024-05-03 09:30 | W.PN.CARDCBS ---
Today's Communication / Plan
-
Cont IV lasix diuresis
Hold aldactone as bp remains low
Hold ARB for now with hypotension
Impression / Plan
-
.
Primary Training Program Developer: Dr. Aguilar, last seen in 2021
Impression:
Presentation with SOB, abd bloating, dry cough
Acute on chronic HFrEF
History of suspected ETOH NICM, recovered
Dry cough
HTN
Ongoing tobacco use
Daily ETOH use
History of noncompliance
Recurrent admission
Echo 11/29/2014: EF 10 to 15%, global hypokinesis, biatrial dilatation, moderate MR, mild AR, moderate TR with PAP 35 to 40 mmHg
ECHO 10/05/15: EF 40%, mild global hypokinesis, mild cLVH, mild AR
ECHO 09/24/2019: EF 50 to 55%, MAC, mild MR, mild TR, PAP 50 mmHg
ECHO 11/22/21: EF 57%, mild concentric LVH, MAC, mild MR, normal right heart
ECHO 04/20/24: EF 20 to 25%, mild concentric LVH, global hypokinesis, stage II diastolic dysfunction, dilated RA, mild to moderate MR, mild AR, moderate TR, mild TX
Plan:
Acute on chronic HFrEF
-Cont IV lasix at least one more day
-Close to wt at last discharge
-HF teaching as she admits to higher salt intake
-Transitioned to ARB from ACEI with dry cough, will hold for hypotension.
-Aldactone added by Dr Renee, holding with hypotension.
-No need to repeat echo
Reiterated the importance of both alcohol and tobacco cessation
Dry cough/wheeze, likely multifactorial
-No leukocytosis or fever with flu/COVID assays negative
-Chest x-ray clear
-Diurese as above. Additionally will change Lasix to ARB
-Transitioned to ARB from ACEI with dry cough, will hold for hypotension.
Moderate nonobstructive coronary artery disease�no active symptoms
-Troponin less than 0.012
-Continue aspirin, statin
Case management to reassess for with medical assistance
Discussed with nursing
Progress Note - Training Program Developer
Subjective
Date of Service: May 03, 2024
Pt seen and examined. Complains of dry cough
Objective
Labs:
05/02/24 08:54
05/03/24 06:16
Labs
Hgb 15.0 g/dL (12.0-16.0) 05/02/24 08:54
Hct 44.6 % (37.0-47.0) 05/02/24 08:54
Plt Count 226 10^3/uL (130-400) 05/02/24 08:54
Sodium 131 mmol/L (135-145) L 05/03/24 06:16
Potassium 4.4 mmol/L (3.5-5.1) 05/03/24 06:16
BUN 30 mg/dl (7-17) H 05/03/24 06:16
Creatinine 1.0 mg/dL (0.6-1.0) 05/03/24 06:16
Glucose 112 mg/dl (70-99) H 05/03/24 06:16
Troponins
05/02/24
08:54
Troponin I < 0.012
Vital Signs and I&O:
Vital Signs
Temp Pulse Resp BP Pulse Ox
98.3 F 59 18 98/59 93
05/03/24 08:22 05/03/24 08:22 05/03/24 08:22 05/03/24 08:22 05/03/24 08:22
Vital Signs
Temp Pulse Resp BP Pulse Ox
98.3 F 59 18 98/59 93
05/03/24 08:22 05/03/24 08:22 05/03/24 08:22 05/03/24 08:22 05/03/24 08:22
Intake & Output
05/01/24 05/02/24 05/03/24 05/04/24
05:59 06:59 06:59 06:59
Intake Total 240 / 240
Balance 240 / 240
Physical Exam
Physical Exam
General: No acute distress, AAOX3
Neck: Negative JVD
Heart: Regular, Negative S3 positive S1/S2, Negative S4, No murmur
Lungs: CTA b/l, negative wheezes/rales/rhonchi
Abd: Positive BS, NT/ND, neg rebound/rigidity/guarding
Ext: Negative cyanosis/clubbing/edema
Neuro: nonfocal
[2024-05-03] MEDS: COREG 12.5 MG PO ×2 (09:51→22:01)
[2024-05-03] MEDS: LASIX 40 MG IV (09:52)
[2024-05-03 11:47] VITALS: BP 95/53
--- NOTE | 2024-05-03 12:35 | W.PN.HOSP.TC ---
Today's Communication/Plan
-
Robitussin/Codeine, tessalon for cough
continue IV Lasix
Assessment / Plan
Assessment / Plan
Assessment:
Acute HFrEF
- admits to dietary noncompliance
- continue IV Lasix - requires intensive monitoring of I/Os, weights, lytes
- continue GDMT with Coreg. Hypotension limits [place]/ARB/Aldactone - d/w Cardiology
- ECHO 04/20/24: EF 20 to 25%, mild concentric LVH, global hypokinesis, stage II diastolic dysfunction, dilated RA, mild to moderate MR, mild AR, moderate TR, mild MS
- s/p left and right heart cath on 04/22/2024. moderate nonobstructive coronary disease and was noted to have PCWP of 20/LVEDP 18. Cardiac index was low at 1.3.
- CHF Education needs to be reinforced
- DCA cards following
Dry wheeze/cough
- [place] stopped
- CXR clear. COVID/Flu negative. Could be seasonal viral disease
- prn supportive care and nebs
Essential HTN
Nonobstructive coronary disease
- continue Coreg/ASA/Statin
active tobacco abuse
- reports 1 pack every 3 days
- nicotine patch
- encouraged cessation
daily ETOH intake
- reports 2-3 drinks daily
- MSAS protocol
- encouraged cessation
Acute hyponatremia
- monitor with IV diuretics
DVT ppx: Lovenox
Code: Full
Anticipated Discharge: > 48 hours
Subjective/Interval History
-
Date of Service: May 03, 2024
reports ongoing dry cough - no fever/chills/no chest pain
Objective Data
-
Labs:
Laboratory Results
05/03/24
06:16
Sodium 131 L
Potassium 4.4
Chloride 99
Carbon Dioxide 22
BUN 30 H
Creatinine 1.0
Glucose 112 H
Calcium 9.3
Vital Signs:
Vital Signs
Temp Pulse Resp BP Pulse Ox
97.9 F 60 18 95/53 93
05/03/24 11:47 05/03/24 11:47 05/03/24 11:47 05/03/24 11:47 05/03/24 11:47
I&O
05/02/24 05/03/24 05/04/24
06:59 06:59 06:59
Intake Total 240 / 240
Balance 240 / 240
Physical Exam
-
General: No Apparent Distress
HEENT: Normocephalic and Atraumatic
Respiratory: Crackles (faint bibasilar); Negative Wheezes
Cardiac: Regular Rhythm and S1/S2
GI: Soft and Nontender
Genito-urinary: No Costovertebral Tender
Musculoskeletal: No Edema
Neuro: AO x 3
Hematologic / Lymphatic: No Lymphadenopathy
Psych: Calm
Data Reviewed
-
Total Time Spent with Patient (in minutes): 51
Labs: Labs Reviewed by me
[2024-05-03] MEDS: ROBITUSSIN AC 10 ML PO ×3 (13:38→22:01)
--- NOTE | 2024-05-03 14:39 | CM ---
Patient seen bedside.
IA completed.
Patient lives with spouse in a 2 story home, no steps to enter.
No assistive devices or hx of VN.
Patient does not drive.
Patient independent prior to admission.
PCP: Dr Mauricio
Pharmacy: [facility]
Plan:home no needs anticipated.
[2024-05-03] MEDS: DUONEB 3 ML INH (15:41)
[2024-05-03 15:48] VITALS: BP 111/66
[2024-05-03] MEDS: LIPITOR 20 MG PO (17:20)
[2024-05-03] MEDS: LOVENOX 40 MG SC (17:20)
[2024-05-03 19:43] VITALS: BP 106/65
[2024-05-03] MEDS: MUCINEX 600 MG PO (22:01)
[2024-05-03 23:26] VITALS: BP 103/71
[2024-05-04 03:38] VITALS: BP 138/68
[2024-05-04] MEDS: ROBITUSSIN AC 10 ML PO (04:07)
[2024-05-04] MEDS: MELATONIN 5 MG PO (04:07)
[2024-05-04 06:00] VITALS: BMI 24.2
[2024-05-04 06:36] LABS: Hematocrit 44.5 % (37.0-47.0); Hemoglobin 15.2 g/dL (12.0-16.0); Mean Corp Hgb Conc. 34.2 g/dL (33.0-37.0); Mean Corpuscular Hgb 29.6 pg (27.0-31.0); Mean Corpuscular Volume 86.6 fL (81.0-99.0); Mean Platelet Volume 11.7 fL (7.4-10.4); Platelet Count 198 10^3/uL (130-400); Red Blood Cell Count 5.14 10^6/uL (4.20-5.40); White Blood Cell Count 5.7 10^3/uL (4.8-10.8)
[2024-05-04 07:30] VITALS: BP 93/66
[2024-05-04 07:30] LABS: Blood Urea Nitrogen 34 mg/dl (7-17); Calcium 9.5 mg/dl (8.4-10.2); Carbon Dioxide 22 mmol/L (22-30); Chloride 98 mmol/L (98-107); Estimated Creatinine Clearance 58 ml/min; Glucose 110 mg/dl (70-99); Potassium 4.2 mmol/L (3.5-5.1); Sodium 131 mmol/L (135-145); eGFR > 60.00
--- NOTE | 2024-05-04 09:06 | W.PN.HOSP.TC ---
Addendum entered and electronically signed by Kimo Landry MD 05/04/24 14:20:
green sputum, possible bronchitis vs early PNA. will prescribe levaquin x 7 days
Original Note:
Today's Communication/Plan
-
possible DC today if cleared by Cards
Assessment / Plan
Assessment / Plan
Assessment:
Acute HFrEF
- admits to dietary noncompliance
- continue IV Lasix - requires intensive monitoring of I/Os, weights, lytes. Possible transition to orals.
- continue GDMT with Coreg. Hypotension limits [place]/ARB/Aldactone - d/w Cardiology
- ECHO 04/20/24: EF 20 to 25%, mild concentric LVH, global hypokinesis, stage II diastolic dysfunction, dilated RA, mild to moderate MR, mild AR, moderate TR, mild NC
- s/p left and right heart cath on 04/22/2024. moderate nonobstructive coronary disease and was noted to have PCWP of 20/LVEDP 18. Cardiac index was low at 1.3.
- CHF Education needs to be reinforced
- DCA cards following and will need OP F/u
Dry wheeze/cough
- [place] stopped
- CXR clear. COVID/Flu negative. Could be seasonal viral disease
- prn supportive care and nebs
Essential HTN
Nonobstructive coronary disease
- continue Coreg/ASA/Statin
active tobacco abuse
- reports 1 pack every 3 days
- nicotine patch
- encouraged cessation
daily ETOH intake
- reports 2-3 drinks daily
- MSAS protocol
- encouraged cessation
Acute hyponatremia
- stable at 131
DVT ppx: Lovenox
Code: Full
Anticipated Discharge: Today
Subjective/Interval History
-
Date of Service: May 04, 2024
reports cough improved today
denies any new complaints
weight down to 67 kg
Objective Data
-
Labs:
Laboratory Results
05/04/24
05:56
WBC 5.7
Hgb 15.2
Hct 44.5
Plt Count 198
Sodium 131 L
Potassium 4.2
Chloride 98
Carbon Dioxide 22
BUN 34 H
Creatinine 1.0
Glucose 110 H
Calcium 9.5
Vital Signs:
Vital Signs
Temp Pulse Resp BP Pulse Ox
97.8 F 59 16 93/66 96
05/04/24 07:30 05/04/24 07:30 05/04/24 07:30 05/04/24 07:30 05/04/24 07:30
I&O
05/03/24 05/04/24 05/05/24
06:59 06:59 06:59
Intake Total 240 / 240 1080 / 1080
Balance 240 / 240 1080 / 1080
Physical Exam
-
General: No Apparent Distress
HEENT: Normocephalic and Atraumatic
Respiratory: Negative Wheezes
Cardiac: Regular Rhythm and S1/S2
GI: Soft
Genito-urinary: No Costovertebral Tender
Neuro: AO x 3
Psych: Calm
Data Reviewed
-
Total Time Spent with Patient (in minutes): 51
Labs: Labs Reviewed by me
[2024-05-04] MEDS: COREG 12.5 MG PO (10:26)
[2024-05-04] MEDS: NICODERM TRANSDERMAL 21 MG TRANSDERM (10:28)
[2024-05-04] MEDS: LOW STRENGTH ASPIRIN 81 MG PO (10:28)
[2024-05-04] MEDS: MUCINEX 600 MG PO (10:28)
[2024-05-04] MEDS: LASIX 40 MG IV (10:29)
--- NOTE | 2024-05-04 10:47 | W.PN.CARDCBS ---
Today's Communication / Plan
-
Stable for discharge from my perspective
Cardiology follow-up has been arranged
Impression / Plan
-
.
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 Aguilar, last seen in 2021
Impression:
Presentation with SOB, abd bloating, dry cough
Acute on chronic HFrEF
History of suspected ETOH NICM, recovered
Dry cough
HTN
Ongoing tobacco use
Daily ETOH use
History of noncompliance
Recurrent admission
Echo 11/29/2014: EF 10 to 15%, global hypokinesis, biatrial dilatation, moderate MR, mild AR, moderate TR with PAP 35 to 40 mmHg
ECHO 10/05/15: EF 40%, mild global hypokinesis, mild cLVH, mild AR
ECHO 09/24/2019: EF 50 to 55%, MAC, mild MR, mild TR, PAP 50 mmHg
ECHO 11/22/21: EF 57%, mild concentric LVH, MAC, mild MR, normal right heart
ECHO 04/20/24: EF 20 to 25%, mild concentric LVH, global hypokinesis, stage II diastolic dysfunction, dilated RA, mild to moderate MR, mild AR, moderate TR, mild CO
Plan:
Acute on chronic HFrEF
-Volume status is improving and down to her prior discharge wt
-Ok to transition from IV to PO lasix from my standpoint
-Reviewed Na and fluid restriction
-Cont Coreg
-Transitioned to ARB from ACEI with dry cough, but held for hypotension. Consider adding back as an outpatient.
-BP unable to tolerate aldactone at this time
-Suspect SGLT2 is prohibitively expensive
-No need to repeat echo
Moderate nonobstructive coronary artery disease�no active symptoms
-Troponin less than 0.012
-Continue aspirin, statin
Stable for discharge from my perspective
Outpatient follow-up has been arranged
Cardiac meds on discharge:
Aspirin 81 mg daily
Atorvastatin 20 mg daily
Coreg 12.5 twice daily
Lasix 40mg daily
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
Subjective
Date of Service: May 04, 2024
Slept well overnight, nocturnal cough as resolved. Feels well today, no SOB/WEBBER and no edema.
Objective
Labs:
05/04/24 05:56
05/04/24 05:56
Labs
Hgb 15.2 g/dL (12.0-16.0) 05/04/24 05:56
Hct 44.5 % (37.0-47.0) 05/04/24 05:56
Plt Count 198 10^3/uL (130-400) 05/04/24 05:56
Sodium 131 mmol/L (135-145) L 05/04/24 05:56
Potassium 4.2 mmol/L (3.5-5.1) 05/04/24 05:56
BUN 34 mg/dl (7-17) H 05/04/24 05:56
Creatinine 1.0 mg/dL (0.6-1.0) 05/04/24 05:56
Glucose 110 mg/dl (70-99) H 05/04/24 05:56
Troponins
05/02/24
08:54
Troponin I < 0.012
Vital Signs and I&O:
Vital Signs
Temp Pulse Resp BP Pulse Ox
97.8 F 62 16 122/67 96
05/04/24 07:30 05/04/24 10:26 05/04/24 07:30 05/04/24 10:26 05/04/24 07:30
Vital Signs
Temp Pulse Resp BP Pulse Ox
97.8 F 62 16 122/67 96
05/04/24 07:30 05/04/24 10:26 05/04/24 07:30 05/04/24 10:26 05/04/24 07:30
Intake & Output
05/02/24 05/03/24 05/04/24 05/05/24
06:59 06:59 06:59 06:59
Intake Total 240 / 240 1080 / 1080
Balance 240 / 240 1080 / 1080
Physical Exam
Physical Exam
Gen: NAD, AAOx3
HEENT: NC/AT, sclera anicteric
Neck: No JVD
CV: RRR, NL s1/s2, no M/R/G
Lungs: CTAB
Abd: S/ND
Ext: No LE edema
Skin: Warm, dry
Neuro: Non-focal
[2024-05-04 11:15] VITALS: BP 126/82
--- NOTE | 2024-05-04 11:45 | W.DS.TRANS ---
DC Summary - [employer]
-
Discharge Instructions:
Sleep Apnea Risk Low
Discharge Diagnosis/Procedures acute Congestive heart failure
Diet 2 Gram Sodium,Low Cholesterol,Restrict fluids to
48 oz
Activity As tolerated
Specialty Instructions Weigh Daily
Instructions: *DCA Heart Failure Instructions
Stand-Alone Forms:
Changes to Home Medications: Yes
Discharge Medications:
DC Medications w/original date entered in [facility]
Restless Leg Pm Tablets 3 - 4 tab PO DAILYPRN PRN rts 04/20/24
atorvastatin 20 mg tablet 20 mg PO QPM #30 tabs 04/24/24
carvedilol 12.5 mg tablet 12.5 mg PO BID #60 tabs 04/24/24
furosemide 40 mg tablet (Lasix) 40 mg PO DAILY #30 tabs 04/24/24
aspirin 81 mg tablet,delayed release 81 mg PO DAILY Blood Clot Prevention/Tx 05/02/24
Home Medication Changes
stop [place]
Pending Results: No
Total time spent discharging patient (in min): 41
--- NOTE | 2024-05-04 13:45 | CM ---
Patient seen at bedside, Patient for discharge home no needs. CM called to [facility] to request follow up. CM will continue to follow for discharge planning needs.
Plan; home with no needs.
[2024-05-04 15:27] VITALS: BP 114/78
--- NOTE | 2024-05-05 10:39 | W.HF.CON ---
Heart Failure
- LV Function
Left ventricular function study result: LV Ejection fraction </= 35% (ECHO 04/20/24)
Ejection Fraction Percentage: 20-25
- ARNI
Patient already on ARNI: No
Heart Failure ARNI Contraindication: Hypotension
- ACEI/ARB
Patient already on ACEI/ARB: No
Heart Failure ACEI/ARB Contraindication: Hypotension
- Beta Allen
Patient already on Evidence Based Beta Allen: Yes
- Mineralocorticord Receptor Antagonist
Patient already on MRA: No
Heart Failure MRA Contraindication: Potentially Non-compliant, Hypotension
- SGLT-2 Inhibitor
Patient already on SGLT-2 Inhibitor: No
Heart Failure SGLT-2 Inhibitor Contraindication: Patient Refusal
- NYHA CHF Classification
NYHA CHF Classification Level: Class III - Symptoms w/ min exertion, interferes w/ nml daily activity
- ACC/AHA Stage
ACC/AHA Stage: Stage C: Symptomatic Heart Failure
== END 2024-05-04 16:15 | disposition home or self-care (01) | DRG 291 ==
LOC: 4 EAST ACU 12:49
PROVIDERS: Nurse Practitioner Family; Physician Assistant; ADMITTING PHYSICIAN Hospitalist; ATTENDING PHYSICIAN Internal Medicine; CONSULT PHYSICIAN Internal Medicine Cardiovascular Disease; EMERGENCY PHYSICIAN Emergency Medicine
DX: I11.0 Hypertensive heart disease with heart failure (principal); I50.43 Acute on chronic combined systolic (congestive) and diastolic (congestive) heart failure; E87.1 Hypo-osmolality and hyponatremia; F17.200 Nicotine dependence, unspecified, uncomplicated; I25.10 Atherosclerotic heart disease of native coronary artery without angina pectoris; Z79.82 Long term (current) use of aspirin; Z79.899 Other long term (current) drug therapy; F10.20 Alcohol dependence, uncomplicated; I95.9 Hypotension, unspecified; Z11.52 Encounter for screening for COVID-19; Z91.119 Patient's noncompliance with dietary regimen due to unspecified reason; J40 Bronchitis, not specified as acute or chronic; M79.89 Other specified soft tissue disorders; I42.8 Other cardiomyopathies; E78.00 Pure hypercholesterolemia, unspecified; Z91.199 Patient's noncompliance with other medical treatment and regimen due to unspecified reason
CPT/HCPCS: 71046; 80048; 80053; 83735; 83880; 84484; 85025; 85027; 87502; 87811; 93005; 94640; 96374; 99285; 99406

== ENCOUNTER → 2024-09-14 16:08 | Outpatient (REF) | payer OTHER, SELFPAY | LOC: RCS 16:08 | PROVIDERS: ATTENDING PHYSICIAN Internal Medicine Cardiovascular Disease; FAMILY PHYSICIAN Family Medicine | DX: I42.9 Cardiomyopathy, unspecified (principal) | CPT/HCPCS: 93306 ==